=== PATIENT | male | born 1980 | race Hispanic/Latino ===

== ENCOUNTER 2017-12-26 21:29 | Inpatient (IN) | payer BC ==
[2017-12-26 22:06] LABS: Bilirubin Negative (Negative); Blood, Urine Negative (Negative); Clarity CLEAR (Clear); Glucose, Urine (Dipstick) Negative (Negative); Leukocyte Negative (Negative); Nitrite Negative (Negative); Protein, Urine (Dipstick) Negative (Neg-Trace); Specific Gravity, Urine 1.025 (1.002-1.036); Urobilinogen 0.2 mg/dL (0.2-1.0)
[2017-12-26 23:35] LABS: #Eosinphils 0.1 thou/uL (0.0-0.7); #Lymphocytes 1.4 thou/uL (1.20-3.40); #Monocytes 1.2 thou/uL (0.11-0.59); #Neutrophils 12.4 thou/uL (1.40-6.50); %Basophils 0.2 % (0.0-1.0); %Eosinophils 0.7 % (0.0-10.0); %Lymphocytes 9.3 % (21.0-51.0); %Neutrophils 81.8 % (42.0-75.0); Hemoglobin 15.9 g/dL (14.0-18.0); Mean Corpuscular HGB CONC 34.9 g/dL (32.0-36.0); Mean Corpuscular Hemoglobin 31.1 pg (27.0-31.0); Mean Corpuscular Volume 89.3 fl (80.0-94.0); Mean Platelet Volume 7.7 fL (7.4-10.4); Platelet Count 199 thou/uL (130-400); RBC Distribution Width 11.9 % (11.5-14.5); Red Blood Cell (RBC) Count 5.12 mill/uL (4.70-6.10); White Blood Cell (WBC) Count 15.1 thou/uL (4.8-10.8)
[2017-12-26 23:59] LABS: ALT (SGPT) 40 U/L (8-55); AST (SGOT) 31 U/L (5-34); Albumin 4.8 g/dL (3.5-5.0); Alkaline Phosphatase 107 U/L (40-150); Anion Gap 15 mmol/L (10-20); BUN (Urea Nitrogen) 15 mg/dL (8.9-20.6); Bilirubin, Total 0.7 mg/dL (0.2-1.2); Calc. Creatinine Clearance 0 mL/min (70-130); Calcium 10.1 mg/dL (7.8-10.44); Carbon Dioxide 26 mmol/L (22-29); Chloride 101 mmol/L (98-107); Estimated GFR-MDRD 69; Globulin 2.9 g/dL (2.4-3.5); Glucose 112 mg/dL (70-105); Protein, Total 7.7 g/dL (6.0-8.3); Sodium 138 mmol/L (136-145)
[2017-12-27] MEDS ORDERED: Ondansetron ODT 8 MG TAB ONE (01:45)
[2017-12-27] MEDS ORDERED: Ondansetron ODT 4 MG TAB ONE (03:46)
[2017-12-27] MEDS ORDERED: Acetaminophen 500 MG TAB ONE (06:05)
[2017-12-27] MEDS ORDERED: Acetaminophen 325 MG TAB PO PRN (06:57)
[2017-12-27] MEDS ORDERED: Ondansetron HCl/PF 4 MG/2 ML Vial IVP PRN (06:57)
[2017-12-27] MEDS ORDERED: Ondansetron ODT 4 MG TAB PO PRN (06:57)
[2017-12-27] MEDS ORDERED: Sodium Chloride 0.9% 1,000 ML IV SCH (07:00)
[2017-12-27] MEDS ORDERED: metroNIDAZOLE 500 MG in Premix Bag 1 BAG IVPB SCH (07:00)
[2017-12-27] MEDS ORDERED: Morphine 4 MG/ML VIAL SLOW IVP PRN (07:45)
[2017-12-27 10:40] VITALS: BMI 31.9
--- NOTE | 2017-12-27 11:11 | CT ---
PRELIMINARY REPORT/[facility]/EMERGENTY AFTER-HOURS PROCEDURE CT Abdomen and Pelvis With Intravenous Contrast CLINICAL HISTORY: 37 years old, male; Abdominal pain: R/O appy TECHNIQUE: Axial computed tomography images of the abdomen and pelvis with intravenous contrast. All CT scans at this facility use one or more dose reduction techniques, viz.: automated exposure control; ma/kV adj ustment per patient size (including targeted exams where dose is matched to indication; i.e. head); or iterative reconstruction technique. Coronal reformatted images were created and reviewed. COMPARISON: No relevant prior studies available. FINDINGS: Lung bases: Unremarkable. No mass. No consolidation. ABDOMEN: Liver: Unremarkable. No mass. Gallbladder and bile ducts: Unremarkable. No calcified stones. No ductal dilation. Pancreas: Unremarkable. No mass. No ductal dilation. Spleen: Unremarkable. No splenomegaly. Adrenals: Unremarkable. No mass. Kidneys and ureters: Unremarkable. No solid mass. No hydronephrosis. Stomach and bowel: Mural thickening of the mid sigmoid colon with associated scattered diverticula an d infiltration / stranding of the pericolonic fat consistent with acute diverticulitis. No mile absc ess or perforation. No obstruction. PELVIS: Appendix: Normal appendix. Bladder: Unremarkable. No mass. Reproductive: Unremarkable as visualized. ABDOMEN and PELVIS: Intraperitoneal space: Unremarkable. No free air. No significant fluid collection. Bones/joints: No acute fracture. No dislocation. Soft tissues: Tiny fat-containing umbilical hernia. Vasculature: Unremarkable. No abdominal aortic aneurysm. Lymph nodes: Unremarkable. No enlarged lymph nodes. IMPRESSION: 1. Normal appendix. 2. Acute diverticulitis of the midsigmoid colon. No associated abscess or perforation. Thank you for allowing us to participate in the care of your patient. Dictated and Authenticated by: Papito Pegn MD 12/27/2017 5:04 AM Central Time ([place] & [place]) FINAL REPORT EMERGENT AFTER HOURS STUDY CT ABDOMEN WITH CONTRAST CT PELVIS WITH CONTRAST: DATE: 12/27/17. TIME: 4:00 a.m. HISTORY: A 37-year-old male with lower abdominal pain. Rule out appendicitis. TECHNIQUE: IV injection of iodinated contrast media: Isovue. Oral contrast media: administered. FINDINGS: At midline in the pelvis, there is a segment of sigmoid colon where there is mural thickening, and mo derately severe surrounding fat stranding representing edema, with a minimal amount of adjacent free fluid, representing acute diverticulitis. There is at least 1 punctate focus and possibly 2, of appa rently extraluminal gas, consistent with contained microperforation. This is a minor disagreement wi th the preliminary report by [facility]. Otherwise, there is no major disagreement. There are multiple d iverticula throughout the sigmoid colon and descending colon. The appendix, abdominal aorta, bilateral kidneys, adrenals, pancreas, liver, and spleen are normal. No small bowel dilation. Decompressed urinary bladder. IMPRESSION: 1. Moderately severe acute sigmoid diverticulitis, including contained microperforation. 2. No abscess. 3. Normal appendix. TOM Aguilar POS: WILLIAN
--- NOTE | 2017-12-27 12:53 | HP ---
DATE OF ADMISSION: 12/27/2017 ADMITTING PHYSICIAN: Dr. Sea Sosa. HISTORY OF PRESENT ILLNESS: The patient is a 37-year-old male who presented to the emergenc y room complaining of left lower quadrant pain, discomfort, and noted a significant pain ongoing, fee ling of fullness, bloated, some nausea, but no vomiting with perhaps having fever, started symptoms a pproximately 12-14 hours prior to admission. He was seen and evaluated in the emergency room. A CT scan was performed, which did reveal acute diverticulitis without apparent evidence of perforation. He has had no prior history of colon surgery, does have a history of undescended testicle surgery. H e has not noted any fever at this time. He does note he has had some difficulty having bowel movemen ts, once again he noticed some localized bloating, generalized malaise for approximately 24 hours. Otherwise, no other medical complaints are noted. ALLERGIES: He has no known allergies. CURRENT MEDICATIONS: None. PAST SURGICAL HISTORY: Significant for undescended testicular torsion surgery, otherwise surgical hi story is negative. PAST MEDICAL HISTORY: Otherwise negative. FAMILY HISTORY: Negative for atherosclerotic coronary artery disease, renal disease, diabetes. SOCIAL AND PERSONAL HISTORY: The patient is employed. He does drink socially. He does not smoke. REVIEW OF SYSTEMS: Positive for recent occipital neuralgia treated with prednisone. PHYSICAL EXAMINATION: VITAL SIGNS: Temperature is 102.4, pulse 112, respirations 22, O2 sats 94, blood pressure 105/68. GENERAL: He is alert and active, does not appear in any distress, appears to be resting comfortably in bed. HEENT: Normocephalic, atraumatic. Sclerae and conjunctivae are clear. NECK: Supple, full range of motion. No masses, no bruits auscultated. Thyroid is midline without t hyromegaly or thyroid masses. LUNGS: Clear. HEART: Reveals tachycardia without murmur, gallops or rubs. ABDOMEN: Reveals some abdominal tenderness to the left lower quadrant. There is no evidence of rebo und or guarding. There are slight bowel sounds present and active. There is tenderness to the left lower quadrant noted. EXTREMITIES: No clubbing, edema or cyanosis. LABORATORY DATA AND IMAGING: White blood count is 15.1, hemoglobin 15.9, hematocrit 45.7. Sodium 13 8, potassium 4.0, chloride 101, CO2 26, BUN 15, creatinine 1.20. CT scan of the abdomen and pelvis d oes reveal acute diverticulitis changes with normal appendix. No abscess or perforation could be dylon reciated. IMPRESSION: Acute diverticulitis. PLAN: The patient has been admitted. He has been started on IV Cipro as well as IV metronidazole. This will be continued. We will give him some pain relief with morphine sulfate. We will consult [facility] for further treatment recommendations.
[2017-12-27] MEDS ORDERED: ISOVUE-370 76%-LOCM 1 ML ONE (13:20)
[2017-12-27] MEDS ORDERED: Iopamidol 370 76% 50 ML VIAL FS ONE (13:20)
[2017-12-27] MEDS ORDERED: Acetaminophen 650 MG in Premix Bag 1 BAG IVPB PRN (13:48)
[2017-12-27] MEDS: Sodium Chloride 0.9% 1,000 ML IV SCH ×2 (14:14→20:21)
[2017-12-27] MEDS: metroNIDAZOLE 500 MG in Premix Bag 1 BAG IVPB SCH (15:32)
--- NOTE | 2017-12-27 15:32 | PDOC.GSCN ---
Surgery Consult: HPI - Consult details Date: 12/27/17 Time: 12:39 Reason for consult: abdominal pain (diverticulitis) Requesting physician: Sea Sosa History of present illness: Mr Baeza is a 37 yo male who presented to [facility] ER with a cc of abdominal pain since noon 12/27/2017. Pain was located in the LLQ and gradually worsening despite taking ibuprofen so patient presented to ER where he was evaluated and found to have diverticulitis. Pt was admitted by his PCP and surgery was consulted for further recommendations. Upon our evaluation the patients states at its worst the pain was a 9/10, but has improved to a 4/10 with the administration of pain medications. He has had diarrhea, chillas and a fever since admission associated with some nausea and dry heaving. He denies constipation, melena, unintentional weight loss, although he did have an episode of hematochezia approximately 6 months ago. Surgery Consult: ROS - Review of Systems All systems: 10 systems reviewed and no additional complaints unless stated below. Surgery Consult: PMH Past Medical History: Pt denies any chronic medical illnesses Past Surgical History: Orcheopexy ages 7 and 22 - Past Family History Pertinent family history: Mother- DM, Father- DM, CAD, Paternal grandfather- CAD - Past Social History Smoking Status: Never smoker Alcohol Use: occasional Drug Use History: pt denies any use Living Situation: independent Surgery Consult: Exam - Vital signs Vital signs: Vital Signs - Most Recent Temp Pulse Resp BP Pulse Ox 102.3 F H 113 H 16 104/65 93 L 12/27/17 11:03 12/27/17 11:03 12/27/17 11:03 12/27/17 11:03 12/27/17 11:03 - Physical Exam General: other (Resting in bed, NAD) Eye: normal ocular movement, PERRL Neck: other (supple, trachea midline) Abdomen: soft, tender (generalized, tenderness with some mild rebound) Surgery Consult: Meds - Medications MAR Reviewed: Yes Medications: Current Medications Acetaminophen (Tylenol) 650 mg PO Q4H PRN PRN Reason: Headache/Fever or Pain Stop: 12/27/17 17:00 Sodium Chloride (Normal Saline 0.9%) 1,000 mls @ 135 mls/hr IV .Q7H25M [facility] Stop: 12/27/17 17:00 Last Admin: 12/27/17 07:59 Dose: 1,000 mls Metronidazole 500 mg/ Device 100 mls @ 100 mls/hr IVPB Q8H [facility] Stop: 12/27/17 17:00 Last Admin: 12/27/17 08:00 Dose: 100 mls Ciprofloxacin/Dextrose 400 mg/ (Device) 200 mls @ 200 mls/hr IVPB Q12HR [facility] Stop: 12/27/17 17:00 Last Admin: 12/27/17 08:03 Dose: 200 mls Morphine Sulfate (Morphine) 2 mg SLOW IVP Q2H PRN PRN Reason: moderate to severe pain Ondansetron HCl (Zofran) 4 mg IVP Q6H PRN PRN Reason: Nausea/Vomiting Stop: 12/27/17 17:00 Ondansetron HCl (Zofran Odt) 4 mg PO Q6H PRN PRN Reason: Nausea/Vomiting Stop: 12/27/17 17:00 Sodium Chloride (Flush - Normal Saline) 10 ml IVF Q12HR [facility] Last Admin: 12/27/17 09:10 Dose: Not Given Sodium Chloride (Flush - Normal Saline) 10 ml IVF PRN PRN PRN Reason: Saline Flush - Allergies Allergies/Adverse Reactions: Allergies Allergy/AdvReac Type Severity Reaction Status Date / Time No Known Allergies Allergy Unverified 12/27/17 06:56 Surgery Consult: Results - Labs Result Diagrams: 12/26/17 23:20 12/26/17 23:20 Lab results: Laboratory Results WBC 15.1 thou/uL (4.8-10.8) H 12/26/17 23:20 RBC 5.12 mill/uL (4.70-6.10) 12/26/17 23:20 Hgb 15.9 g/dL (14.0-18.0) 12/26/17 23:20 Hct 45.7 % (42.0-52.0) 12/26/17 23:20 MCV 89.3 fl (80.0-94.0) 12/26/17 23:20 MCH 31.1 pg (27.0-31.0) H 12/26/17 23:20 MCHC 34.9 g/dL (32.0-36.0) 12/26/17 23:20 RDW 11.9 % (11.5-14.5) 12/26/17 23:20 Plt Count 199 thou/uL (130-400) 12/26/17 23:20 MPV 7.7 fL (7.4-10.4) 12/26/17 23:20 Neutrophils % 81.8 % (42.0-75.0) H 12/26/17 23:20 Lymphocytes % 9.3 % (21.0-51.0) L 12/26/17 23:20 Monocytes % 8.0 % (0.0-10.0) 12/26/17 23:20 Eosinophils % 0.7 % (0.0-10.0) 12/26/17 23:20 Basophils % 0.2 % (0.0-1.0) 12/26/17 23:20 Neutrophils # 12.4 thou/uL (1.40-6.50) H 12/26/17 23:20 Lymphocytes # 1.4 thou/uL (1.20-3.40) 12/26/17 23:20 Monocytes # 1.2 thou/uL (0.11-0.59) H 12/26/17 23:20 Eosinophils # 0.1 thou/uL (0.0-0.7) 12/26/17 23:20 Basophils # 0.0 thou/uL (0.0-0.2) 12/26/17 23:20 Sodium 138 mmol/L (136-145) 12/26/17 23:20 Potassium 4.0 mmol/L (3.5-5.1) 12/26/17 23:20 Chloride 101 mmol/L (98-107) 12/26/17 23:20 Carbon Dioxide 26 mmol/L (22-29) 12/26/17 23:20 Anion Gap 15 mmol/L (10-20) 12/26/17 23:20 BUN 15 mg/dL (8.9-20.6) 12/26/17 23:20 Creatinine 1.20 mg/dL (0.6-1.3) 12/26/17 23:20 Estimated GFR (MDRD) 69 12/26/17 23:20 Glucose 112 mg/dL (70-105) H 12/26/17 23:20 Calcium 10.1 mg/dL (7.8-10.44) 12/26/17 23:20 Total Bilirubin 0.7 mg/dL (0.2-1.2) 12/26/17 23:20 AST 31 U/L (5-34) 12/26/17 23:20 ALT 40 U/L (8-55) 12/26/17 23:20 Alkaline Phosphatase 107 U/L (40-150) 12/26/17 23:20 Serum Total Protein 7.7 g/dL (6.0-8.3) 12/26/17 23:20 Albumin 4.8 g/dL (3.5-5.0) 12/26/17 23:20 Globulin 2.9 g/dL (2.4-3.5) 12/26/17 23:20 Albumin/Globulin Ratio 1.7 g/dL (1.2-2.2) 12/26/17 23:20 Urine Color YELLOW (Yellow) 12/26/17 22:01 Urine Clarity CLEAR (Clear) 12/26/17 22:01 Urine pH 6.0 (5.0-9.0) 12/26/17 22:01 Ur Specific [place] 1.025 (1.002-1.036) 12/26/17 22:01 Urine Protein Negative mg/dL (Neg-Trace) 12/26/17 22:01 Urine Glucose (UA) Negative mg/dL (Negative) 12/26/17 22:01 Urine Ketones Negative mg/dL (Negative) 12/26/17 22:01 Urine Blood Negative (Negative) 12/26/17 22:01 Urine Nitrite Negative (Negative) 12/26/17 22:01 Urine Bilirubin Negative (Negative) 12/26/17 22:01 Urine Urobilinogen 0.2 mg/dL (0.2-1.0) 12/26/17 22:01 Ur Leukocyte Esterase Negative (Negative) 12/26/17 22:01 - Radiology Interpretation CT scan - abdomen Status: report reviewed by me (CT scan ab/pelvis reviewed by Dr Gauthier, evidence of thickened sigmoid colon with adjacent fat stranding and punctate area of extraluminal gas- possibly secondary to microperforation) Surgery Consult: A/P - Problem (1) Diverticulitis large intestine Current Visit: Yes Code(s): K57.32 - DVTRCLI OF LG INT W/O PERFORATION OR ABSCESS W/O BLEEDING Status: Acute Qualifiers: Diverticulitis bleeding: without bleeding Diverticulitis complication: with perforation and without abscess Qualified Code(s): K57.20 - Diverticulitis of large intestine with perforation and abscess without bleeding (2) Abdominal pain Current Visit: Yes Code(s): R10.9 - UNSPECIFIED ABDOMINAL PAIN Status: Acute Qualifiers: Abdominal location: left lower quadrant Qualified Code(s): R10.32 - Left lower quadrant pain - Plan Plan: There is no acute surgical indication at this time. Continue IV abx, IV fluid hydration and NPO status. Continue serial abdominal exams. Thank you for the consultation we will continue to follow this patient closely with you. Pt was seen and evaluated with Dr Gauthier, assessment and plan developed concurrently
[2017-12-27] MEDS ORDERED: Clopidogrel Bisulfate 75 MG TAB ONE (16:16)
[2017-12-28] MEDS: metroNIDAZOLE 500 MG in Premix Bag 1 BAG IVPB SCH ×4 (00:45→23:35)
[2017-12-28 04:43] LABS: #Lymphocytes 1.6 thou/uL (1.20-3.40); #Monocytes 1.1 thou/uL (0.11-0.59); #Neutrophils 13.7 thou/uL (1.40-6.50); %Basophils 0.1 % (0.0-1.0); %Eosinophils 0.1 % (0.0-10.0); %Lymphocytes 9.5 % (21.0-51.0); %Monocytes 6.8 % (0.0-10.0); %Neutrophils 83.5 % (42.0-75.0); Hemoglobin 13.6 g/dL (14.0-18.0); Mean Corpuscular HGB CONC 34.3 g/dL (32.0-36.0); Mean Corpuscular Hemoglobin 31.6 pg (27.0-31.0); Mean Corpuscular Volume 92.1 fl (80.0-94.0); Mean Platelet Volume 8.1 fL (7.4-10.4); Platelet Count 152 thou/uL (130-400); Red Blood Cell (RBC) Count 4.31 mill/uL (4.70-6.10); White Blood Cell (WBC) Count 16.4 thou/uL (4.8-10.8)
[2017-12-28] MEDS: Sodium Chloride 0.9% 1,000 ML IV SCH ×4 (04:43→22:57)
[2017-12-28 04:55] LABS: Anion Gap 8 mmol/L (10-20); BUN (Urea Nitrogen) 9 mg/dL (8.9-20.6); Calc. Creatinine Clearance 134 mL/min (70-130); Calcium 8.6 mg/dL (7.8-10.44); Carbon Dioxide 26 mmol/L (22-29); Chloride 106 mmol/L (98-107); Estimated GFR-MDRD 81; Glucose 110 mg/dL (70-105); Potassium 3.4 mmol/L (3.5-5.1); Sodium 137 mmol/L (136-145)
--- NOTE | 2017-12-28 08:46 | PRG ---
DATE OF SERVICE: 12/28/2017 SUBJECTIVE: Mr. Baeza is feeling better. OBJECTIVE: VITAL SIGNS: His T-max is 100.2, blood pressure 111/75. LUNGS: Clear. ABDOMEN: Appears a little bit less tender in the left lower quadrant, but still does have some tende rness, less rigidity is noted. LABORATORY DATA: His white count of 16.4, hemoglobin 13.6, hematocrit 39.7. Chemistry profile is wi thin normal limits. Blood cultures are negative. IMPRESSION: Acute diverticulitis. PLAN: He is improving, we will continue Cipro and Flagyl. I have discussed with him the future nayeli peña recommendations regarding surgery. Hopefully, he will be able to eat today.
[2017-12-28] MEDS ORDERED: traMADol HCl 50 MG TAB PO PRN ×2 (12:41)
[2017-12-28] MEDS ORDERED: Morphine 4 MG/ML VIAL SLOW IVP PRN (12:42)
[2017-12-28] MEDS ORDERED: Acetaminophen 500 MG TAB PO SCH (13:00)
--- NOTE | 2017-12-28 13:21 | PRG ---
DATE OF SERVICE: 12/28/2017 SUBJECTIVE: Mr. Baeza is a 37-year-old man admitted yesterday with acute onset abdominal pa in. Diagnosis of acute sigmoid colon diverticulitis with microperforation was rendered. The patient was placed on broad-spectrum antibiotics. He was placed on bowel rest. Today, he reports no nausea , vomiting. He reports a decrease in abdominal pain. He did have a bowel movement this morning and passes flatus. His urinary output has been adequate. He denies any chills. OBJECTIVE: VITAL SIGNS: Today includes blood pressure 111/75, pulse is 96, respiratory rate is 18, maximum temp erature in the last 24 hours is 102.4 degrees Fahrenheit; however, currently, his temperature is 99.5 degrees Fahrenheit. HEENT: Reveals normocephalic and atraumatic. HEART: Reveals regular rate and rhythm, no murmurs or gallops auscultated. LUNGS: Clear to auscultation bilaterally. Breathing regular and unlabored. ABDOMEN: Soft, nondistended. He has moderate tenderness to palpation, left lower quadrant greater t brady right. He has marked decrease in rebound tenderness in contrast yesterday. NEUROLOGIC: Reveals no focal deficits present. LABORATORY DATA: Today includes a CBC with 16,400 white blood cells, hemoglobin and hematocrit are s table at 13.6 and 39.7 respectively. Platelet count is stable at 152,000. Metabolic profile: Sodiu m 137, potassium 3.4, chloride is 106, bicarbonate is 26, BUN 9, creatinine is 1.04, glucose is 110. IMPRESSION: 1. Acute sigmoid colon diverticulitis with microperforation, stable. 2. Resolving acute febrile illness secondary to #1. 3. Acute hypokalemia. PLAN: 1. Continue with broad spectrum IV antibiotics. 2. Initiate a clear liquid diet as tolerated. There is no acute surgical indication for this patien t at this time. We will reevaluate the patient tomorrow. If tolerated clear liquid diet and remains afebrile, we will consider advancing his diet and convert antibiotic therapy to oral agents. Above findings and plan discussed with the patient who indicates understanding of the information giv en. I have answered his questions.
[2017-12-28] MEDS: Acetaminophen 500 MG TAB PO SCH ×2 (17:20→23:35)
[2017-12-29] MEDS: Sodium Chloride 0.9% 1,000 ML IV SCH ×3 (02:17→22:46)
[2017-12-29] MEDS: Acetaminophen 500 MG TAB PO SCH ×3 (05:19→17:07)
[2017-12-29 06:10] LABS: Eosinophils 1 % (0-10); Hemoglobin 12.4 g/dL (14.0-18.0); Lymphocytes 15 % (21-51); MDiff Complete? YES; Mean Corpuscular HGB CONC 32.9 g/dL (32.0-36.0); Mean Corpuscular Hemoglobin 30.2 pg (27.0-31.0); Mean Corpuscular Volume 91.8 fl (80.0-94.0); Mean Platelet Volume 7.8 fL (7.4-10.4); Monocytes 10 % (0-10); Neutrophil 74 % (42-75); PLT Morphology Comment Appears Adequate; Platelet Count 151 thou/uL (130-400); RBC Distribution Width 11.9 % (11.5-14.5); Red Blood Cell (RBC) Count 4.11 mill/uL (4.70-6.10); White Blood Cell (WBC) Count 12.5 thou/uL (4.8-10.8)
[2017-12-29] MEDS: metroNIDAZOLE 500 MG in Premix Bag 1 BAG IVPB SCH ×2 (08:24→15:45)
--- NOTE | 2017-12-29 11:40 | PRG ---
DATE OF SERVICE: 12/29/2017 ATTENDING PHYSICIAN: Dr. Hari Gauthier. SUBJECTIVE: Mr. Baeza is a 37-year-old male, who was admitted 2 days ago with acute onset of abdomin al pain. Workup identified acute sigmoid colon diverticulitis with microperforation. He was placed on broad spectrum antibiotics and admitted to the floor. He was placed on bowel rest. He has subseq uently had no nausea or vomiting. His abdominal pain has significantly decreased. He was started on clear liquid diet yesterday, which he tolerated well. White blood cell count is trending downward. He is having normal bowel function. OBJECTIVE: VITAL SIGNS: Temperature 98.8, pulse 58, respirations 16, O2 sat 97% on room air, and blood pressure 112/74. CONSTITUTIONAL: Well-developed, well-nourished male lying in bed in no acute distress. HEENT: Atraumatic, normocephalic. CARDIOVASCULAR: Regular rate and rhythm. Heart sounds normal. PULMONARY: Bilateral breath sounds. Clear to auscultation. ABDOMEN: Soft, nondistended, mild tenderness to left lower quadrant, significantly improved since ex am yesterday. NEUROLOGIC: GCS 15. Awake, alert, oriented x3. LABORATORY DATA: Hematology: WBC 12.5 down from 16.4 yesterday, RBC 4.11, hemoglobin 12.4, hematocr it 37.7, and platelets 151. ASSESSMENT: 1. Acute sigmoid colon diverticulitis with microperforation, improving. 2. Improving leukocytosis. 3. Afebrile for past 24 hours. 4. Tolerating clear liquid diet. 5. Improving abdominal pain and abdominal exam. PLAN: 1. Advance diet to low residual. We will request dietary consult for patient teaching. 2. We would transition antibiotics to oral only to prepare for discharge. 3. We will need to remain on low residual diet and have followup with Gastroenterology for colonosco py in approximately 6 weeks. The patient was reviewed with Dr. Gauthier, who agrees with plan.
--- NOTE | 2017-12-29 12:28 | PRG ---
DATE OF SERVICE: 12/29/2017 SUBJECTIVE: The patient continues to improve. He had some abdominal pain last night, but feels bett er. He is tolerating clear liquids and Surgery has advanced his diet for lunch today. Denies fever, denies nausea and vomiting. He is ambulating in the room. OBJECTIVE: VITAL SIGNS: Temperature 98.8, T-max of 99.5, heart rate 61, respirations 16, blood pressure 112/74, pulse ox is 97% on room air. GENERAL: He is awake and alert, in no acute distress. HEENT: Speech is clear. Mucosa is moist. NECK: Supple. HEART: Regular rate and rhythm. LUNGS: Clear. ABDOMEN: With minimal left lower quadrant tenderness. LABORATORY DATA: White blood cell count down to 12,500 from 16,400 yesterday, hemoglobin and hematoc rit are 12.4 and 37.7, platelets of 151. ASSESSMENT AND PLAN: This is a 37-year-old gentleman admitted for acute diverticulitis with microper foration. He continues to improve with broad-spectrum IV antibiotics. No surgical indication at thi s time. Advancing diet per Surgery and possibly switching to oral antibiotics if he tolerates his di et and hopefully home in the next 1-2 days.
[2017-12-30] MEDS: Acetaminophen 500 MG TAB PO SCH ×2 (00:11→05:05)
[2017-12-30] MEDS: metroNIDAZOLE 500 MG in Premix Bag 1 BAG IVPB SCH ×2 (00:11→07:48)
[2017-12-30] MEDS: Sodium Chloride 0.9% 1,000 ML IV SCH ×2 (02:16→06:33)
[2017-12-30 05:12] LABS: #Eosinphils 0.2 thou/uL (0.0-0.7); #Monocytes 0.7 thou/uL (0.11-0.59); #Neutrophils 7.3 thou/uL (1.40-6.50); %Basophils 0.2 % (0.0-1.0); %Eosinophils 1.8 % (0.0-10.0); %Lymphocytes 19.4 % (21.0-51.0); %Monocytes 6.9 % (0.0-10.0); %Neutrophils 71.6 % (42.0-75.0); Hemoglobin 12.9 g/dL (14.0-18.0); Mean Corpuscular HGB CONC 35.2 g/dL (32.0-36.0); Mean Corpuscular Hemoglobin 32.4 pg (27.0-31.0); Mean Corpuscular Volume 92.1 fl (80.0-94.0); Mean Platelet Volume 7.6 fL (7.4-10.4); Platelet Count 189 thou/uL (130-400); RBC Distribution Width 11.6 % (11.5-14.5); Red Blood Cell (RBC) Count 3.99 mill/uL (4.70-6.10); White Blood Cell (WBC) Count 10.1 thou/uL (4.8-10.8)
--- NOTE | 2017-12-30 10:46 | PRG ---
DATE OF SERVICE: 12/30/2017 ATTENDING PHYSICIAN: Dr. Hari Gauthier. SUBJECTIVE: Mr. Baeza is a 37-year-old male who was admitted 3 days ago with acute onset of abdomina l pain. Workup identified acute sigmoid colon diverticulitis with microperforation. He was placed o n broad spectrum antibiotics and admitted to the floor. He was started on bowel rest and subsequentl y had no nausea or vomiting. His abdominal pain improved drastically. He was started on clear liqui d diet which he tolerated well. He was then advanced to a low residual diet with patient instruction by Dietary Services. He is now seen this morning and is virtually pain free. His white blood cell count is 10.1, down from 12.5 yesterday. He has remained afebrile. He is having normal bowel functi on. OBJECTIVE: VITAL SIGNS: Temperature 98.2, pulse 58, respirations 20, O2 saturation 97% room air, and blood pres sure 117/81. CONSTITUTIONAL: Well-nourished, well-developed male sitting on the edge of bed, in no acute distress . HEENT: Atraumatic, normocephalic. CARDIOVASCULAR: Regular rate and rhythm. Heart sounds normal. PULMONARY: Bilateral breath sounds clear to auscultation. ABDOMEN: Soft, nondistended. No generalized tenderness. Very mild tenderness to left lower quadran t with palpation. Tenderness has nearly completely resolved from prior exams. NEUROLOGIC: GCS 15. Awake, alert, oriented x3. LABORATORY DATA: Hematology: WBC 10.1, RBC 3.99, hemoglobin 12.9, hematocrit 36.7, and platelets 11 .6. ASSESSMENT: 1. Acute sigmoid colon diverticulitis with microperforation, improving. 2. Resolved leukocytosis. 3. Afebrile for 48 hours. 4. Tolerating low residual diet. 5. Patient verbalizing understanding of low residual diet after dietary teaching. 6. No further generalized abdominal pain. Only very mild tenderness in the left lower quadrant with palpation. PLAN: 1. The patient has no indication for surgical intervention urgently at this . 2. Transition antibiotics to oral for discharge per primary service. 3. Remain on low residual diet and have followup with Gastroenterology for a colonoscopy in approxim ately 6 weeks. 4. Trauma services to sign off. Please call with any questions. Patient was reviewed with Dr. Shashank enamorado who agrees with the plan.
[2017-12-30 11:54] VITALS: BP 119/82; TEMP 98.4
[2017-12-30] MEDS ORDERED: metroNIDAZOLE 500 MG TAB PO SCH (15:00)
--- NOTE | 2017-12-30 17:15 | DIS ---
DATE OF ADMISSION: 12/27/2017 DATE OF DISCHARGE: 12/30/2017 PRIMARY CARE PHYSICIAN: Dr. Sea Sosa ADMISSION DIAGNOSIS: Acute diverticulitis. DISCHARGE DIAGNOSIS: Acute diverticulitis, improved. CONSULTATIONS: None. PROCEDURE: CT abdomen. CONSULTATIONS: General Surgery, Dr. Gauthier. HOSPITAL COURSE: This is a 37-year-old gentleman with no prior medical history who presented to the emergency department with left lower quadrant abdominal pain which had been worsening as well as deve loped a fever. In the emergency department, CT revealed acute diverticulitis with evidence of microp erforation. He was admitted and started on broad spectrum antibiotics including IV Cipro and metroni dazole. Dr. Gauthier for General Surgery saw the patient in evaluation, did not think he was a surgical candidate, but recommended n.p.o. status, IV antibiotics, and IV fluid rehydration. The patient kamran erated this well. He had rapid improvement of his symptoms in 1-2 days. His diet was advanced and h e was tolerating a p.o. diet, ambulating in the gibbs. No further fever and only requiring Tylenol fo r pain. He was switched to oral antibiotics and continued to do well and was stable for discharge on the day of discharge. DISCHARGE PHYSICAL EXAMINATION: VITAL SIGNS: Temperature 98.2, T-max of 98.4, pulse of 58, respirations 20, blood pressure 117/81, p ulse ox is 97% on room air. GENERAL: He is awake and alert, in no acute distress. Speech is clear. HEENT: Mucosa is moist. NECK: Supple. HEART: Regular rate and rhythm. LUNGS: Clear. ABDOMEN: With positive bowel sounds in all four quadrants, soft, minimal tenderness in the left lowe r quadrant, but no rebound, no guarding. No peritoneal signs. DISCHARGE LABORATORY DATA: White blood cell count was down to 10.1 thousand, hemoglobin and hematocr it 12.9 and 36.7, platelets of 189. Electrolytes were normal. Urinalysis was normal. DISCHARGE MEDICATIONS: Include Levaquin 500 mg daily for 7 more days, metronidazole 500 mg t.i.d. fo r 7 more days, Tylenol p.r.n., and tramadol p.r.n. FOLLOWUP INSTRUCTIONS: Patient to follow up with Dr. Sosa in 1 week with Gastroenterology in 6 week s for a colonoscopy, instructed to limit strenuous activity due to quinolone treatment.
== END 2017-12-30 12:13 | disposition home or self-care (01) | DRG 392 ==
LOC: ERS 21:29 → T4-B 12-27 05:44
PROVIDERS: ADMIT Family Medicine; ATTEND Family Medicine
DX: K57.20 Diverticulitis of large intestine with perforation and abscess without bleeding (principal); E87.6 Hypokalemia
CPT/HCPCS: 36415; 74177; 80048; 80053; 81003; 85007; 85025; 85027; 87040; 96360; A4216; J0131; J0744; Q0162

== ENCOUNTER 2019-12-25 09:16 | Inpatient (IN) | payer BC ==
[2019-12-25] MEDS ORDERED: Piperacillin/Tazobactam 3.375 GM VIAL ONE (09:41)
[2019-12-25] MEDS ORDERED: Iopamidol-370 76% 500 ML 1 ML ONE (09:43)
[2019-12-25] MEDS ORDERED: Iopamidol 370 76% 50 ML VIAL FS ONE (09:43)
[2019-12-25 10:03] LABS: #Basophils 0.1 thou/uL (0.0-0.2); #Lymphocytes 1.8 thou/uL (1.20-3.40); #Monocytes 1.1 thou/uL (0.11-0.59); #Neutrophils 16.9 thou/uL (1.40-6.50); %Basophils 0.4 % (0.0-1.0); %Eosinophils 0.2 % (0.0-10.0); %Lymphocytes 8.9 % (21.0-51.0); %Monocytes 5.5 % (0.0-10.0); %Neutrophils 85.1 % (42.0-75.0); Hemoglobin 16.2 g/dL (14.0-18.0); Mean Corpuscular HGB CONC 33.1 g/dL (32.0-36.0); Mean Corpuscular Hemoglobin 30.1 pg (27.0-31.0); Mean Corpuscular Volume 90.9 fL (78.0-98.0); Mean Platelet Volume 8.1 fL (7.4-10.4); Platelet Count 207 thou/uL (130-400); White Blood Cell (WBC) Count 19.9 thou/uL (4.8-10.8)
[2019-12-25 10:25] LABS: ALT (SGPT) 37 U/L (8-55); AST (SGOT) 16 U/L (5-34); Albumin 4.6 g/dL (3.5-5.0); Alkaline Phosphatase 92 U/L (40-110); Anion Gap 16 mmol/L (10-20); BUN (Urea Nitrogen) 12 mg/dL (8.9-20.6); Bilirubin, Total 2.5 mg/dL (0.2-1.2); Calc. Creatinine Clearance 0 mL/min (70-130); Carbon Dioxide 22 mmol/L (22-29); Chloride 100 mmol/L (98-107); Estimated GFR-MDRD 58; Globulin 3.3 g/dL (2.4-3.5); Glucose 146 mg/dL (70-105); Lipase 12 U/L (8-78); Potassium 3.3 mmol/L (3.5-5.1); Protein, Total 7.9 g/dL (6.0-8.3); Sodium 135 mmol/L (136-145)
[2019-12-25] MEDS ORDERED: Ketorolac Tromethamine 30 MG/ML VIAL ONE (10:31)
[2019-12-25 12:01] LABS: Bacteria/HPF None Seen HPF (None Seen); Bilirubin Negative (Negative); Blood, Urine Negative (Negative); Clarity Clear (Clear); Glucose, Urine (Dipstick) Normal (Negative); Leukocyte Negative Leu/uL (Negative); Nitrite Negative (Negative); Protein, Urine (Dipstick) 50 mg/dL (Neg-Trace); RBC/HPF 0-3 HPF (0-3); Squamous Epithelial None Seen HPF (0-3); Urobilinogen Normal mg/dL (Less than 2)
[2019-12-25 12:54] LABS: Lactic Acid 1.3 mmol/L (0.5-2.2)
--- NOTE | 2019-12-25 13:12 | CT ---
CT ABDOMEN WITH CONTRAST CT PELVIS WITH CONTRAST: DATE: 12/25/2019 HISTORY: 39-year-old male with left lower quadrant abdominal pain Dr. Barbour discussed the findings by telephone with Dr. Thomas of the ER at 1:06 PM 12/25/2019 COMPARISON: 12/27/2017 TECHNIQUE: IV injection of iodinated contrast media: administered. Oral contrast media:Administered FINDINGS: New finding of pneumoperitoneum: Small to moderate volume of intraperitoneal free air in the ventral upper portion of peritoneal cavity. Numerous tiny foci of free intraperitoneal air scattered in other areas of the peritoneal cavity. There is recurrent diverticulitis of the sigmoid colon, with mural thickening and surrounding fat str anding that represents edema, as well as tiny and small foci of extraluminal free air adjacent to the sigmoid colon. At the left pelvic inlet, there is an approximately 4 x 2 x 5.5 cm paracolic abscess abutting the lat eral aspect of the junction between the descending and sigmoid colon, with air-fluid level. Normal appendix, urinary bladder, abdominal aorta, kidneys, adrenals, pancreas, liver, and spleen. IMPRESSION: Acute sigmoid colonic diverticulitis complicated by perforation (pneumoperitoneum) and paracolic absc ess.
[2019-12-25] MEDS ORDERED: Morphine 4 MG/ML VIAL SLOW IVP PRN (13:52)
[2019-12-25] MEDS ORDERED: hydrALAZINE 20 MG/ML VIAL SLOW IVP PRN (13:52)
[2019-12-25] MEDS ORDERED: Ondansetron PF 4 MG/2 ML Vial IVP PRN (13:52)
--- NOTE | 2019-12-25 14:28 | HP ---
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 The patient was hospitalized in 2018, treated in this hospital, this facility with intravenous antibiotics and bowel rest, successfully resolving nonsurgical treatment of diverticulitis. He has since been seen over [facility] last year for colonoscopy, revealing changes of diverticuli. He is followed by Dr. Sea Sosa. He states he has had several episodes of pain. He has altered his diet to liquids, and after a few days, it improves and resolves. He was treated on one occasion with oral antibiotics by Dr. Sea Sosa, resolving this. On this occasion, he presented a few days ago, Dr. Sosa called in Levaquin and Flagyl. The patient's pain became exquisitely worse. He presented to the emergency room today, and CAT scan reveals a scant amount of pneumoperitoneum and an abscess and left pericolic gutter, 4 cm x 2 x 5.5 cm. Has a small air-fluid level. I have talked to Dr. Zia Barbour, he states that they could aspirate it, he is not sure that he could get a catheter in it, that is so small. The patient is feeling somewhat better now. Pain is mainly localized to the left lower quadrant. He has been hemodynamically stable. ALLERGIES: NONE. TOBACCO: None. ALCOHOL: Socially. MEDICATIONS: None routinely except for Levaquin and Flagyl started by Dr. Sosa 2 to 3 days ago. PAST SURGICAL HISTORY: Orchiopexy. PAST MEDICAL HISTORY: Diverticulitis, colonoscopy last year, [facility], noting diverticuli. No other abnormalities noted. REVIEW OF SYSTEMS: Ten-point noncontributory. SOCIAL HISTORY: The patient is single. He lives alone. PHYSICAL EXAMINATION: VITAL SIGNS: Blood pressure 140/70, respiratory rate 18, and heart rate 70. HEAD, EARS, EYES, NOSE, AND THROAT: Unremarkable. LUNGS: Clear to auscultation. CARDIAC: Regular rate and rhythm without murmur or gallop. ABDOMEN: Tenderness with guarding in his left lower quadrant. Left upper quadrant, right upper quadrant, right lower quadrant reveal that it is soft. Bowel sounds are present. There are no peritoneal signs in these other quadrants. EXTREMITIES: No ankle edema. LABORATORY DATA: Sodium 135, potassium 3.3. Lactic acid 2.1. Bilirubin 2.5. Sodium 135. White count 19, hemoglobin 16. ASSESSMENT AND PLAN: Diverticulitis with abscess and a small amount of pneumoperitoneum. However, he is hemodynamically stable and not very tender. We would recommend intravenous antibiotics. We will reassess him clinically to see how he is doing. May request a CT-guided drainage, although with the size of his abscess cavity, this could be aspirated and a drain may not be able to be placed. WE would see how he does clinically over the next 24 to 48 hours. He may need a drain placed next week if the abscess enlarges. A repeat CAT scan in this hospitalization is likely prior to discharge. I have talked to the patient extensively about the treatment of diverticulitis. He states he has had so many episodes as an outpatient and with the second hospitalization, he is thinking that he wants definitive resection. We have talked about the fact that it would be best to treat him for this acute event and do this electively in the future to hopefully minimize the risk of an ostomy. He agrees. Job ID: [id number]
[2019-12-25 16:24] VITALS: BMI 32.6
[2019-12-25] MEDS: Morphine 2 MG/ML SYRINGE SLOW IVP PRN ×2 (16:24→18:43)
[2019-12-25] MEDS: Acetaminophen 500 MG TAB PO PRN ×2 (16:26→22:32)
[2019-12-25] MEDS: Potassium Chloride 20 MEQ in Lactated Ringer's 1,000 ML IV SCH ×2 (16:45→21:15)
[2019-12-25] MEDS: Piperacillin/Tazobactam 4.5 GM in Sodium Chloride 0.9% 100 ML IVPB SCH ×2 (17:02→23:40)
[2019-12-25] MEDS: Ketorolac Tromethamine 30 MG/ML VIAL IVP SCH ×2 (17:02→23:40)
[2019-12-25] MEDS: Enoxaparin Sodium 40 MG/0.4 ML SYRINGE SC SCH (20:19)
[2019-12-26 05:18] LABS: Band 30 % (5-11); Hemoglobin 14.8 g/dL (14.0-18.0); Lymphocytes 11 % (21-51); MDiff Complete? YES; Mean Corpuscular HGB CONC 31.2 g/dL (32.0-36.0); Mean Corpuscular Hemoglobin 29.1 pg (27.0-31.0); Mean Corpuscular Volume 93.3 fL (78.0-98.0); Mean Platelet Volume 8.1 fL (7.4-10.4); Monocytes 4 % (0-10); Neutrophil 55 % (42-75); Platelet Count 190 thou/uL (130-400); Platelet Morphology Comment Appears Adequate; Red Blood Cell (RBC) Count 5.08 mill/uL (4.70-6.10); White Blood Cell (WBC) Count 9.7 thou/uL (4.8-10.8)
[2019-12-26 05:20] LABS: ALT (SGPT) 25 U/L (8-55); AST (SGOT) 13 U/L (5-34); Alkaline Phosphatase 77 U/L (40-110); Anion Gap 16 mmol/L (10-20); BUN (Urea Nitrogen) 11 mg/dL (8.9-20.6); Calc. Creatinine Clearance 120 mL/min (70-130); Calcium 9.4 mg/dL (7.8-10.44); Carbon Dioxide 20 mmol/L (22-29); Chloride 105 mmol/L (98-107); Estimated GFR-MDRD 71; Globulin 2.9 g/dL (2.4-3.5); Glucose 127 mg/dL (70-105); Potassium 3.7 mmol/L (3.5-5.1); Protein, Total 6.9 g/dL (6.0-8.3); Sodium 137 mmol/L (136-145)
[2019-12-26] MEDS: Ketorolac Tromethamine 30 MG/ML VIAL IVP SCH ×4 (05:55→23:28)
[2019-12-26] MEDS: Piperacillin/Tazobactam 4.5 GM in Sodium Chloride 0.9% 100 ML IVPB SCH ×4 (05:55→23:30)
[2019-12-26] MEDS: Potassium Chloride 20 MEQ in Lactated Ringer's 1,000 ML IV SCH ×3 (05:56→22:30)
[2019-12-26] MEDS: Pantoprazole 40 MG VIAL IVP SCH (08:36)
[2019-12-26] MEDS ORDERED: Fentanyl 100 MCG/2 ML VIAL ONE ×4 (09:46→14:50)
[2019-12-26] MEDS ORDERED: Dexamethasone 4 mg/ml Vial ONE (09:51)
[2019-12-26] MEDS ORDERED: Midazolam HCl 2 mg/2 ml Vial ONE (09:51)
[2019-12-26] MEDS ORDERED: Fentanyl 250 MCG/5 ML VIAL ONE (10:07)
[2019-12-26] MEDS ORDERED: Albumin 5% 500 ML ONE (11:00)
[2019-12-26] MEDS ORDERED: Glycopyrrolate 0.2 MG/ML 5 ML SYRINGE ONE (11:39)
[2019-12-26] MEDS ORDERED: PROPOFOL 200 MG/20 ML VIAL ONE (11:39)
[2019-12-26] MEDS ORDERED: Dexamethasone 20 MG/5 ML VIAL ONE ×2 (11:39→11:42)
[2019-12-26] MEDS ORDERED: Succinylcholine Chloride 20 MG/ML 10 ml SYRINGE FS ONE (11:39)
[2019-12-26] MEDS ORDERED: PHENYLEPHRINE-NS 100 MCG/ML 10 ML SYRINGE ONE (11:39)
[2019-12-26] MEDS ORDERED: Ondansetron PF 4 MG/2 ML Vial ONE (11:39)
[2019-12-26] MEDS ORDERED: Lidocaine 1% PF 5 ML VIAL ONE (11:39)
[2019-12-26] MEDS ORDERED: Rocuronium Bromide 10 MG/ML (10ML VIAL) ONE (11:39)
[2019-12-26] MEDS ORDERED: Piperacillin/Tazobactam 4.5 GM VIAL ONE (11:42)
[2019-12-26] MEDS ORDERED: Bupivacaine HCl 0.5%/Epinephrine 1:200,000/PF 30 ml Vial ONE (11:42)
[2019-12-26] MEDS ORDERED: Morphine Sulfate 2 MG/ML SYRINGE SLOW IVP PRN (13:38)
[2019-12-26] MEDS ORDERED: HYDROmorphone 2 MG/ML VIAL SLOW IVP PRN (13:38)
[2019-12-26] MEDS ORDERED: PACU-Morphine 4MG/ML VIAL SLOW IVP PRN (13:38)
[2019-12-26] MEDS ORDERED: Meperidine HCl/PF 25 MG/ML VIAL SLOW IVP PRN (13:38)
[2019-12-26] MEDS ORDERED: Promethazine HCl 25 MG/ML VIAL IM PRN ×2 (13:38→14:57)
[2019-12-26] MEDS ORDERED: Ketorolac Tromethamine 30 MG/ML VIAL IVP PRN (13:38)
[2019-12-26] MEDS ORDERED: Ondansetron HCl/PF 4 MG/2 ML Vial IVP PRN (13:38)
[2019-12-26] MEDS ORDERED: Promethazine HCl 25 MG/ML VIAL SLOW IVP PRN (13:38)
[2019-12-26] MEDS ORDERED: Lactated Ringer's 1,000 ML IV SCH (14:00)
--- NOTE | 2019-12-26 14:25 | EKG ---
Test Reason : Blood Pressure : / mmHG Vent. Rate : 099 BPM Atrial Rate : 099 BPM P-R Int : 134 ms QRS Dur : 084 ms QT Int : 342 ms P-R-T Axes : 026 024 229 degrees QTc Int : 438 ms Normal sinus rhythm T wave abnormality, consider inferior ischemia T wave abnormality, consider anterolateral ischemia Abnormal ECG Confirmed by NARAYAN TOPETE DO ([id number]), editor city DONNA RATLIFF ([id number]) on 12/26/2019 2:25:25 PM Referred By: Confirmed By:NARAYAN TOPETE DO
[2019-12-26] MEDS ORDERED: Ondansetron PF 4 MG/2 ML Vial IVP PRN (14:57)
[2019-12-26] MEDS ORDERED: Zolpidem Tartrate 5 MG TAB PO PRN (14:57)
[2019-12-26] MEDS ORDERED: Naloxone HCl 0.4 mg/ml Vial IV PRN (14:57)
[2019-12-26] MEDS ORDERED: diphenhydrAMINE 25 MG CAP PO PRN (14:57)
[2019-12-26] MEDS ORDERED: diphenhydrAMINE 50 MG/ML VIAL IVP PRN (14:57)
[2019-12-26] MEDS ORDERED: diphenhydrAMINE 50 MG/ML VIAL IM PRN (14:57)
[2019-12-26] MEDS ORDERED: fentaNYL Citrate/PF 2,000 MCG in Sodium Chloride 0.9% 60 ML IV PRN (14:57)
[2019-12-26] MEDS ORDERED: Communication Order-Pharmacy FS PRN (15:00)
--- NOTE | 2019-12-26 15:52 | PRG ---
DATE OF SERVICE: 12/26/2019 TIME OF EVALUATION: 0830. SUBJECTIVE: Mr. Baeza evaluated at 0830 this morning. The patient was admitted for diverticulitis and his pain and tenderness was more localized to the left lower quadrant. His white count was 19,000. By this morning, his white count is 9000, but he has a left shift of 30% bands. The patient had a fever last night to 102 degrees. He was tachycardic to 140, although, he was last morning at 101. The patient states his pain is increased involving right lower quadrant, right upper quadrant, left upper quadrant. It is more severe than yesterday. OBJECTIVE: GENERAL: He is pale looking and ill-looking. LUNGS: Clear to auscultation. CARDIAC: Sinus tachycardia. ABDOMEN: Diffusely tender with peritoneal signs. EXTREMITIES: Unremarkable. ASSESSMENT: Sepsis, peritonitis, perforated diverticulitis. PLAN: We would recommend laparotomy, colon resection, Kayla's procedure. The patient understands the risks and benefits, consents. We will plan general anesthesia and pain pump. The patient understands risks and benefits, understands. Colostomy can be reversed in the months to come. He is agreeable and we proceed. Job ID: [id number]
--- NOTE | 2019-12-26 18:57 | OP ---
DATE OF PROCEDURE: 12/26/2019 PREOPERATIVE DIAGNOSES: Perforated diverticulitis, sigmoid peritonitis, and sepsis. POSTOPERATIVE DIAGNOSES: Perforated diverticulitis, sigmoid peritonitis, and sepsis. PROCEDURES PERFORMED: Laparotomy; abdominal washout; sigmoid colon resection; left colon and splenic flexure mobilization; Kayla's procedure, end-sigmoid colostomy, temporary; Seprafilm application; and resection of redundant fatty omentum. ANESTHESIA: General anesthesia. ESTIMATED BLOOD LOSS: 200 mL. BLOOD TRANSFUSION: None. DESCRIPTION OF PROCEDURE: Patient was taken to the operating room, where under general anesthesia, abdomen was clipped of hair, prepared with ChloraPrep and draped in routine fashion. A midline incision was made and during the procedure had to be extended cephalad for splenic flexure mobilization. On entering the abdominal cavity, there was purulent material that was evacuated. Small bowel was not dilated. Omentum was very redundant and fatty. Inflammatory infectious adhesions taken down from the pelvis with blunt dissection reflecting the omentum cephalad. Redundant omentum divided with LigaSure and excised. Left colon mobilized. Blunt dissection. Left colon mobilized with cautery and blunt dissection using the LigaSure. The left ureter kept free of harm. Transverse colon free from the omentum with the cautery towards the splenic flexure, mobilized the splenic flexure, mobilizing the left colon, splenic flexure, off Gerota's fascia. Once this was mobilized adequately, the colon dissected free down to the pelvis and above the rectosigmoid. The distal sigmoid dissected free. Mesentery divided with a LigaSure to allow identification of the circumferential distal sigmoid colon which was divided in the disease-free area with a Contour stapler. Mesentery serially divided between LigaSure and clamps with 2-0 silk ties up to the MONO which was divided between clamps, ligating with 2-0 silk ties, keeping the left ureter free of harm. Dissection was carried out more cephalad towards the ligament of Treitz, mobilized in the left colon for adequate reach for a safe colostomy and anticipating future of colostomy takedown. Once this was mobilized, there was one seromuscular tear of the left colon, closed with interrupted Lembert suture of 3-0 silk and fatty tissue patch applied over with 3-0 silk suture. Abdominal cavity irrigated thoroughly with 5 L of saline solution in all quadrants and intraabdominal small bowel loops. Irrigant evacuated. Hemostasis was noted. Sponge and instrument counts were correct. Attention was then turned to formation of the colostomy where circular defect of skin was removed from the left lower quadrant between the umbilicus and the anterior superior iliac spine and a plug of fatty tissue excised from overlying the anterior lateral fascia. A cruciate incision was made in the fascia. Rectus muscle reflected medial and laterally and posterior peritoneum/fascia opened with a cruciate incision, dilated with two fingers and the colon brought out properly oriented through this defect. Abdominal cavity thoroughly irrigating. Instrument and needle counts were correct. Omentum properly placed between the viscera and abdominal wall. Seprafilm placed between the viscera and abdominal wall. Once this was complete, midline fascia closed with continuous suture of #1 PDS. Subcutaneous tissues irrigated, skin approximated in the midline about the umbilicus with dread. Otherwise, left open above and below. Abdominal wound VAC applied. Once this was applied, colostomy maturation undertaken excising the staple line from the end colostomy in the left lower quadrant. Colon was small. There was abundant fatty tissue. Four quadrant Maria Del Carmen sutures of 3-0 Vicryl placed, simple sutures 3-0 Vicryl to complete colostomy maturation and colostomy appliance secured. Patient tolerated the procedure well. Job ID: [id number]
[2019-12-26] MEDS: Enoxaparin Sodium 40 MG/0.4 ML SYRINGE SC SCH (21:26)
[2019-12-27] MEDS: Potassium Chloride 20 MEQ in Lactated Ringer's 1,000 ML IV SCH ×4 (00:25→21:36)
[2019-12-27] MEDS: Ketorolac Tromethamine 30 MG/ML VIAL IVP SCH ×4 (05:41→23:16)
[2019-12-27] MEDS: Piperacillin/Tazobactam 4.5 GM in Sodium Chloride 0.9% 100 ML IVPB SCH ×4 (05:42→23:16)
[2019-12-27 05:43] LABS: ALT (SGPT) 27 U/L (8-55); AST (SGOT) 30 U/L (5-34); Albumin 3.5 g/dL (3.5-5.0); Alkaline Phosphatase 51 U/L (40-110); Anion Gap 13 mmol/L (10-20); BUN (Urea Nitrogen) 15 mg/dL (8.9-20.6); Bilirubin, Total 1.2 mg/dL (0.2-1.2); Calc. Creatinine Clearance 129 mL/min (70-130); Calcium 8.9 mg/dL (7.8-10.44); Carbon Dioxide 24 mmol/L (22-29); Chloride 105 mmol/L (98-107); Estimated GFR-MDRD 77; Globulin 2.7 g/dL (2.4-3.5); Glucose 127 mg/dL (70-105); Protein, Total 6.2 g/dL (6.0-8.3); Sodium 138 mmol/L (136-145)
[2019-12-27 05:48] LABS: Band 21 % (5-11); Hemoglobin 11.1 g/dL (14.0-18.0); Hypochromia SLIGHT = 6-15 cells (100X) (0-5/hpf); Lymphocytes 8 % (21-51); MDiff Complete? YES; Mean Corpuscular HGB CONC 33.3 g/dL (32.0-36.0); Mean Corpuscular Hemoglobin 31.3 pg (27.0-31.0); Mean Corpuscular Volume 93.9 fL (78.0-98.0); Mean Platelet Volume 8.3 fL (7.4-10.4); Metamyelocyte 4 % (0-0); Monocytes 7 % (0-10); Neutrophil 60 % (42-75); Platelet Count 173 thou/uL (130-400); Platelet Morphology Comment Appears Adequate; RBC Distribution Width 11.8 % (11.5-14.5); Red Blood Cell (RBC) Count 3.56 mill/uL (4.70-6.10); White Blood Cell (WBC) Count 11.4 thou/uL (4.8-10.8)
[2019-12-27] MEDS: Pantoprazole 40 MG VIAL IVP SCH (08:18)
--- NOTE | 2019-12-27 17:21 | PRG ---
DATE OF SERVICE: 12/27/2019 SUBJECTIVE: Kiran Baeza is doing well, one day postop laparotomy, splenic flexure mobilization, left colon mobilization, colostomy. The patient feels much better. He is appreciative for the care. His pain has markedly improved. His abdomen pain is well controlled. OBJECTIVE: VITAL SIGNS: 98.2, 100 heart rate, 16 respiratory rate, 121/81. Wade catheter removed and he is voiding. LUNGS: Clear to auscultation. CARDIAC: Regular rate and rhythm. No murmur or gallop. ABDOMEN: Soft. Wound VAC in place. Minimal bowel sounds, colostomy healthy. LABORATORY DATA: White count 11, hemoglobin 11. Basic metabolic profile unremarkable. ASSESSMENT AND PLAN: The patient is doing well. We will initiate clear liquids. I have asked him to go slow. Continue IV fluids for now. Wound Care to teach colostomy care. Outpatient wound VAC arrangements to be made. Job ID: [id number]
[2019-12-27] MEDS: Enoxaparin Sodium 40 MG/0.4 ML SYRINGE SC SCH (20:24)
[2019-12-27] MEDS ORDERED: Loratadine 10 MG TAB PO SCH (22:15)
[2019-12-27] MEDS ORDERED: Oxymetazoline HCl 0.05% (30 ML BOT) NS PRN (22:15)
[2019-12-28] MEDS: Potassium Chloride 20 MEQ in Lactated Ringer's 1,000 ML IV SCH ×2 (05:32→17:11)
[2019-12-28] MEDS: Ketorolac Tromethamine 30 MG/ML VIAL IVP SCH ×4 (05:33→23:43)
[2019-12-28] MEDS: Piperacillin/Tazobactam 4.5 GM in Sodium Chloride 0.9% 100 ML IVPB SCH ×4 (05:33→23:42)
[2019-12-28] MEDS: Pantoprazole 40 MG VIAL IVP SCH (09:16)
[2019-12-28] MEDS: Loratadine 10 MG TAB PO SCH (09:16)
[2019-12-28] MEDS ORDERED: HYDROcodone/Acetaminophen 10/325 mg Tablet PO PRN ×2 (09:31)
[2019-12-28] MEDS ORDERED: traMADol HCl 50 MG TAB PO PRN ×2 (11:13)
[2019-12-28] MEDS ORDERED: Ketorolac Tromethamine 30 MG/ML VIAL IVP SCH (12:00)
--- NOTE | 2019-12-28 12:23 | PRG ---
DATE OF SERVICE: 12/28/2019 SUBJECTIVE: Kiran Baeza is a followup. He is 2 days postoperative sigmoid resection and colostomy. He feels much better. He is walking. He is tolerating liquids well. OBJECTIVE: VITAL SIGNS: Temperature 98.1 degrees, heart rate 84, blood pressure 123/80. LUNGS: Clear to auscultation. CARDIAC: Regular rate and rhythm without murmur or gallop. ABDOMEN: Soft. Bowel sounds present. Some stool in his colostomy bag. No flatus. EXTREMITIES: Unremarkable. LABORATORY DATA: None today. The patient is tolerating liquids without nausea, vomiting, or distention. ASSESSMENT AND PLAN: Perforated diverticulitis with peritonitis, status post laparotomy, Kayla's procedure, colectomy, colostomy. Continue clear liquids today, full liquids tomorrow as wound VAC to be changed tomorrow and I would like to view the wound. We will ask Wound Care to call me to view the wound. Arrange outpatient wound VAC care. Teach the patient colostomy care. Anticipate discharge in the next 2 to 3 days. Continue intravenous antibiotics. Job ID: [id number]
--- NOTE | 2019-12-28 21:25 | ULT ---
EXAM: Bilateral lower extremity venous Doppler US HISTORY: bilateral lower extremity edema and pain FINDINGS: Grayscale, color-flow, Doppler evaluation, spectral analysis of the bilateral lower extremities venou s structures is performed with 2-D imaging. The bilateral common femoral, superficial femoral, popliteal, posterior tibial, proximal greater saphenous and profunda femoral veins are imaged. There is normal luminal compressibility, flow, and augmentation in the visualized deep venous structu res of the bilateral lower extremities. IMPRESSION: No evidence of a deep vein thrombosis in either lower extremity.
[2019-12-28] MEDS: Enoxaparin Sodium 40 MG/0.4 ML SYRINGE SC SCH (21:40)
[2019-12-29] MEDS: Piperacillin/Tazobactam 4.5 GM in Sodium Chloride 0.9% 100 ML IVPB SCH ×4 (05:16→22:55)
[2019-12-29] MEDS: Ketorolac Tromethamine 30 MG/ML VIAL IVP SCH ×4 (05:17→22:56)
[2019-12-29] MEDS: Acetaminophen 500 MG TAB PO PRN ×3 (08:14→22:56)
[2019-12-29] MEDS: Loratadine 10 MG TAB PO SCH (08:14)
--- NOTE | 2019-12-29 10:12 | PRG ---
DATE OF SERVICE: 12/29/2019 SUBJECTIVE: Kiran Baeza is doing well today. He feels somewhat better. He believes that advancing leg edema. He did complain of leg tightness and an ultrasound of his lower extremities obtained last night revealed negative findings for DVT. He is on subcu Lovenox prophylaxis. He is without nausea, vomiting, or abdominal distention. Colostomy is healthy with a slight amount of flatus in the bag, but no stool. OBJECTIVE: VITAL SIGNS: 98.8 degrees, 100, 132/65. HEAD, EARS, EYES, NOSE, AND THROAT: Unremarkable. LUNGS: Clear to auscultation. No wheezing. CARDIAC: Regular rate and rhythm without murmur or gallop. ABDOMEN: Soft. Occasional bowel sounds. Colostomy healthy. Wound VAC removed. His wound looks very healthy. Wound VAC was replaced. I expect he would be able to possibly close the wound at the bedside next week. I would continue the wound VAC as an outpatient. Job ID: [id number]
[2019-12-29] MEDS: Enoxaparin Sodium 40 MG/0.4 ML SYRINGE SC SCH (20:49)
[2019-12-30] MEDS: Ketorolac Tromethamine 30 MG/ML VIAL IVP SCH ×3 (05:08→18:18)
[2019-12-30] MEDS: Piperacillin/Tazobactam 4.5 GM in Sodium Chloride 0.9% 100 ML IVPB SCH ×3 (05:09→18:18)
[2019-12-30] MEDS: Loratadine 10 MG TAB PO SCH (08:09)
[2019-12-30] MEDS: Acetaminophen 500 MG TAB PO PRN (13:40)
[2019-12-30 15:25] LABS: Hemoglobin 9.8 g/dL (14.0-18.0); Mean Corpuscular HGB CONC 32.7 g/dL (32.0-36.0); Mean Corpuscular Hemoglobin 30.6 pg (27.0-31.0); Mean Corpuscular Volume 93.7 fL (78.0-98.0); Mean Platelet Volume 7.2 fL (7.4-10.4); Platelet Count 250 thou/uL (130-400); RBC Distribution Width 12.2 % (11.5-14.5); White Blood Cell (WBC) Count 18.5 thou/uL (4.8-10.8)
[2019-12-30 15:49] LABS: ALT (SGPT) 35 U/L (8-55); AST (SGOT) 19 U/L (5-34); Albumin 3.1 g/dL (3.5-5.0); Alkaline Phosphatase 111 U/L (40-110); Anion Gap 15 mmol/L (10-20); BUN (Urea Nitrogen) 9 mg/dL (8.9-20.6); Calc. Creatinine Clearance 147 mL/min (70-130); Calcium 8.1 mg/dL (7.8-10.44); Carbon Dioxide 23 mmol/L (22-29); Chloride 102 mmol/L (98-107); Estimated GFR-MDRD 89; Globulin 2.6 g/dL (2.4-3.5); Glucose 130 mg/dL (70-105); Potassium 3.2 mmol/L (3.5-5.1); Protein, Total 5.7 g/dL (6.0-8.3); Sodium 137 mmol/L (136-145)
[2019-12-30 15:54] LABS: Band 21 % (5-11); Lymphocytes 5 % (21-51); MDiff Complete? YES; Metamyelocyte 1 % (0-0); Monocytes 7 % (0-10); Myelocyte 1 % (0-0); Neutrophil 62 % (42-75); Platelet Morphology Comment Appears Adequate; Polychromasia SLIGHT = 2-3 cells (100X) (0-2/hpf); Promyelocytes 1 % (0-0); Reactive Lymphocytes 2 % (0-10); Toxic Granulation SLIGHT; Vacuoles SLIGHT
--- NOTE | 2019-12-30 17:26 | PRG ---
DATE OF SERVICE: 12/30/2019 SUBJECTIVE: Kiran Baeza is doing well today. He did have a fever to 100 degrees, although the nurse called me and reported 101, although it is not recorded. The patient states he feels much better by the time I am seeing him this afternoon. I did order stat labs, and his white count is 18 and hemoglobin 9.8. Sodium 137, potassium 3.2. GFR 89. glucose 160. Alkaline phosphatase is 111, albumin 3.1. Bilirubin has fallen from 3 on admission to 1.2 on the 2nd and 1 today. He reports some upper abdominal discomfort. He has not had any biliary type symptoms in the past. PHYSICAL EXAMINATION: LUNGS: Clear to auscultation. CARDIAC: Regular rate and rhythm without murmur or gallop. ABDOMEN: Soft, plus bowel sounds, healthy colostomy, stool in his bag. Wound VAC in place. ASSESSMENT AND PLAN: The patient is doing well. Plan continued intravenous antibiotics. Recheck his white count and basic metabolic panel in the morning and check a chest x-ray because he is febrile. Consider ultrasound of the gallbladder. Consider CAT scan of the abdomen and pelvis tomorrow pending clinical course and white count trend. The patient has a good activity level and is using his incentive spirometer. Job ID: [id number]
[2019-12-30] MEDS: Enoxaparin Sodium 40 MG/0.4 ML SYRINGE SC SCH (20:49)
[2019-12-31] MEDS: Piperacillin/Tazobactam 4.5 GM in Sodium Chloride 0.9% 100 ML IVPB SCH ×4 (00:28→17:39)
[2019-12-31 05:31] LABS: Band 7 % (5-11); Hemoglobin 10.4 g/dL (14.0-18.0); Hypochromia SLIGHT = 6-15 cells (100X) (0-5/hpf); Lymphocytes 7 % (21-51); MDiff Complete? YES; Mean Corpuscular HGB CONC 32.6 g/dL (32.0-36.0); Mean Corpuscular Hemoglobin 30.4 pg (27.0-31.0); Mean Corpuscular Volume 93.1 fL (78.0-98.0); Mean Platelet Volume 7.1 fL (7.4-10.4); Metamyelocyte 2 % (0-0); Monocytes 4 % (0-10); Neutrophil 79 % (42-75); Platelet Count 340 thou/uL (130-400); Platelet Morphology Comment Appears Adequate; RBC Distribution Width 12.1 % (11.5-14.5); Reactive Lymphocytes 1 % (0-10); Red Blood Cell (RBC) Count 3.44 mill/uL (4.70-6.10); White Blood Cell (WBC) Count 17.4 thou/uL (4.8-10.8)
[2019-12-31 05:36] LABS: ALT (SGPT) 30 U/L (8-55); AST (SGOT) 18 U/L (5-34); Albumin 3.2 g/dL (3.5-5.0); Alkaline Phosphatase 117 U/L (40-110); Anion Gap 14 mmol/L (10-20); BUN (Urea Nitrogen) 9 mg/dL (8.9-20.6); Bilirubin, Total 0.7 mg/dL (0.2-1.2); Calc. Creatinine Clearance 160 mL/min (70-130); Calcium 8.5 mg/dL (7.8-10.44); Carbon Dioxide 25 mmol/L (22-29); Chloride 102 mmol/L (98-107); Estimated GFR-MDRD Greater than 90; Globulin 2.9 g/dL (2.4-3.5); Glucose 110 mg/dL (70-105); Potassium 3.2 mmol/L (3.5-5.1); Protein, Total 6.1 g/dL (6.0-8.3); Sodium 138 mmol/L (136-145)
[2019-12-31] MEDS: Loratadine 10 MG TAB PO SCH (08:26)
--- NOTE | 2019-12-31 08:42 | ULT ---
GALLBLADDER ULTRASOUND: INDICATION: Right upper quadrant pain. FINDINGS: Images of the gallbladder show echogenic sludge. No definite gallstones. Gallbladder wall thickness is normal. The common duct is normal caliber. The pancreas is obscured. The visualized liver appears unremarkable. The right kidney is unremarkable as visualized. The tech nologist describes a negative Velasco's sign. IMPRESSION: There is echogenic sludge seen within the gallbladder. No definite gallstones. POS: AGW
[2019-12-31] MEDS ORDERED: Potassium Chloride 20 MEQ TAB PO SCH ×2 (09:00→17:00)
[2019-12-31] MEDS ORDERED: Iopamidol-370 76% 500 ML 1 ML ONE (09:05)
[2019-12-31] MEDS ORDERED: Iopamidol 370 76% 50 ML VIAL FS ONE (09:05)
--- NOTE | 2019-12-31 09:25 | EKG ---
Test Reason : STAT TACHY Blood Pressure : / mmHG Vent. Rate : 134 BPM Atrial Rate : 134 BPM P-R Int : 168 ms QRS Dur : 078 ms QT Int : 296 ms P-R-T Axes : 055 025 119 degrees QTc Int : 442 ms Sinus tachycardia Cannot rule out Inferior infarct , age undetermined Probable LVH with repolarization changes Abnormal ECG No previous ECGs available Confirmed by DR. Rosy WREN ([id number]) on 12/31/2019 9:25:16 AM Referred By: DAVID KELLY Confirmed By:DR. Rosy WREN
--- NOTE | 2019-12-31 09:45 | RAD ---
EXAM: Chest PA and lateral: HISTORY: Postoperative fever. COMPARISON: None FINDINGS: Heart: Normal cardiac silhouette Aorta: Atherosclerosis of the aorta Pulmonary vessels: Normal Costophrenic angles: Small left-sided pleural effusion. Lungs: Bibasilar interstitial opacities, left greater than right. Focal consolidation with air bronch ograms in the left lower lobe. Pneumothorax: No pneumothorax Osseous structures: No osseous abnormalities IMPRESSION: 1. Small left-sided pleural effusion. Consolidation in the left lower lobe with air bronchograms may represent atelectasis, pneumonia or aspiration. 2. Nonspecific subtle interstitial opacities in the right lung base may represent atelectasis.
--- NOTE | 2019-12-31 17:20 | CT ---
CT ABDOMEN AND PELVIS WITH CONTRAST: 12/31/19 INDICATIONS: Postop fever after sigmoid resection and colostomy. COMPARISON: 12/25/19 CT abdomen and pelvis. FINDINGS: Images through the lung bases small bilateral effusions. There is dense consolidation and atelectasis in the left lung base. Mild atelectasis in the right lung base. Liver, spleen, pancreas unremarkable . Kidneys unremarkable. Small bowel loops normal caliber. There is fluid in the left abdomen which is not loculated and appea rs to represent free fluid along the left colon and colonic gutter. This may represent postoperative change. Ostomy is noted on the left. There is a tiny pocket of free air seen anteriorly in the right upper quadrant. Otherwise no signific ant free air. IMPRESSION: 1. Small bilateral effusions. Dense consolidation and atelectasis in the left lung base with mil d atelectasis/infiltrate in the right lung base. 2. Free fluid in the left abdomen along the colonic gutter and left colon into the left pelvis. No loculated abscess collection identified. POS: AGW
[2019-12-31] MEDS: Acetaminophen 500 MG TAB PO PRN (20:31)
--- NOTE | 2019-12-31 20:31 | HP ---
HISTORY OF PRESENT ILLNESS: Kiran Baeza is feeling a lot better today. He reports having subjective fever and chills early this morning while his temperature was actually only 99 degrees. Yesterday at 11:42 a.m., he had a temperature of 100 degrees and at 7 this morning, 99.7 degrees. He is feeling somewhat better today. The right upper quadrant pain has resolved. His heart rate is 96 to 105. He is passing stool and flatus from his colostomy. Pathology reveals diverticulitis changes. No malignancy. Laboratories this morning revealed his white count is 17, postoperatively had dropped to 11.4, but now it is 17,000 with an unremarkable differential. He had 21% bands yesterday, 7% today, normalized. His potassium is still low at 3.2. Basic met otherwise unremarkable. His alkaline phosphatase is slightly elevated, but his transaminases are normal. On presentation, his bilirubin was 3, which was probably due to his peritonitis from his perforated diverticulitis and has normalized. Because of his right upper quadrant pain and temporary initial elevations in his bilirubin, ultrasound of the gallbladder was obtained revealing some sludge, otherwise unremarkable findings. The sludge was probably postoperative fasting and no treatment is necessary because he did not have any prior symptoms of biliary disease. The patient had a chest x-ray this morning, reveals changes consistent with his peritonitis and perforation with a small left-sided effusion and some left lower lobe consolidation consistent with atelectasis, pneumonia, and aspiration. These are probably postoperative changes. The patient overall feels better. PHYSICAL EXAMINATION: LUNGS: Clear to auscultation. No wheezing. CARDIAC: Regular rate and rhythm without murmur or gallop. ABDOMEN: Soft. Bowel sounds present. Colostomy healthy. Wound VAC was changed this morning, I was not called. EXTREMITIES: Unremarkable. Of note, his previous ultrasound of lower extremities negative for DVT. ASSESSMENT AND PLAN: Postoperative fever from diverticulitis. We will obtain CAT scan of the abdomen and pelvis p.o. and IV contrast today. We will continue intravenous antibiotics. Continue regular diet and saline lock. We will check CBC and basic metabolic in the morning. If he continues doing well, possibly can be discharged home in the next day or two pending his fever and temperature and CAT scan results. He does have a followup visit in my office next week for possible wound closure anticipating he will go home in the next day or two. Job ID: [id number]
[2019-12-31] MEDS: Enoxaparin Sodium 40 MG/0.4 ML SYRINGE SC SCH (20:34)
[2020-01-01] MEDS: Piperacillin/Tazobactam 4.5 GM in Sodium Chloride 0.9% 100 ML IVPB SCH ×3 (00:24→11:52)
[2020-01-01 05:18] LABS: #Basophils 0.1 thou/uL (0.0-0.2); #Eosinphils 0.3 thou/uL (0.0-0.7); #Lymphocytes 1.8 thou/uL (1.20-3.40); #Monocytes 0.9 thou/uL (0.11-0.59); #Neutrophils 10.2 thou/uL (1.40-6.50); %Basophils 0.5 % (0.0-1.0); %Eosinophils 2.3 % (0.0-10.0); %Lymphocytes 13.7 % (21.0-51.0); %Neutrophils 76.5 % (42.0-75.0); Hemoglobin 9.1 g/dL (14.0-18.0); Mean Corpuscular HGB CONC 32.4 g/dL (32.0-36.0); Mean Corpuscular Hemoglobin 30.4 pg (27.0-31.0); Mean Corpuscular Volume 93.8 fL (78.0-98.0); Mean Platelet Volume 6.7 fL (7.4-10.4); Platelet Count 319 thou/uL (130-400); RBC Distribution Width 12.2 % (11.5-14.5); White Blood Cell (WBC) Count 13.3 thou/uL (4.8-10.8)
[2020-01-01 05:42] LABS: ALT (SGPT) 25 U/L (8-55); AST (SGOT) 16 U/L (5-34); Alkaline Phosphatase 95 U/L (40-110); Anion Gap 13 mmol/L (10-20); BUN (Urea Nitrogen) 8 mg/dL (8.9-20.6); Bilirubin, Total 0.6 mg/dL (0.2-1.2); Calc. Creatinine Clearance 166 mL/min (70-130); Calcium 8.1 mg/dL (7.8-10.44); Carbon Dioxide 25 mmol/L (22-29); Chloride 104 mmol/L (98-107); Estimated GFR-MDRD Greater than 90; Globulin 2.5 g/dL (2.4-3.5); Glucose 102 mg/dL (70-105); Potassium 3.8 mmol/L (3.5-5.1); Protein, Total 5.5 g/dL (6.0-8.3); Sodium 138 mmol/L (136-145)
[2020-01-01] MEDS: Loratadine 10 MG TAB PO SCH (08:24)
[2020-01-01] MEDS ORDERED: Ibuprofen 600 MG TAB PO PRN (13:13)
[2020-01-01 13:20] VITALS: BP 138/87; TEMP 99.2
[2020-01-01] MEDS ORDERED: Amoxicillin/Potassium Clav 875 MG TAB PO SCH (21:00)
--- NOTE | 2020-01-02 04:45 | DIS ---
DATE OF ADMISSION: 12/25/2019 DATE OF DISCHARGE: 01/01/2020 DISCHARGE DIAGNOSES: Ruptured appendicitis with peritonitis from diverticular abscess. PROCEDURES: CAT scan of abdomen and pelvis, exploratory laparotomy, left colon resection, splenic flexure mobilization, and colostomy. CAT scan 12/31/2019 postoperatively, noting postoperative changes. Follow up with Dr. Dodson next week for evaluation of wound for secondary closure at bedside in the office. I will arrange for outpatient wound VAC care and outpatient wound care [facility]. HISTORY: A 39-year-old male with multiple admissions and episodes of diverticulitis treated nonsurgically, admitted at this occasion with repeat diverticulitis, severe pain, and fever. He initially was treated conservatively, nonoperatively. By the next morning, he decompensated and worsened and required the above-mentioned operation. Postoperatively, he did well, convalesced, and tolerated his diet. He was instructed on colostomy care. He was sent home with pain regimen of Tylenol and Motrin [id number] and Ultram p.r.n. pain. He is on Augmentin 875 p.o. b.i.d. for 7 days. No lifting over 25 pounds. Outpatient wound care appointment for wound VAC care. Appointment in my office next week for inspection of wound, consideration of delayed closure at bedside. Job ID: [id number]
--- NOTE | 2020-01-02 08:23 | PQF ---
RENUKA ERIC RICHARD D MD [id number] SURG [id number] CLINICAL DOCUMENTATION CLARIFICATION FORM: POST DISCHARGE Addendum to original discharge summary date: ____ Late entry note date: __ DATE: 01/02/2020 ATTN:Sea Osorio Please exercise your independent, professional judgment in responding to the clarification form. Clinical indicators are provided on the bottom of this form for your review Sepsis [ ] Ruled in diagnosis [ ] Continue to treat [ ] Resolved [ ] Ruled out diagnosis [ ] Cannot rule out diagnosis [ ] Other diagnosis [ ] Unable to determine In addition, please specify: Present on Admission (POA): [ ] Yes [ ] No [ ] Unable to determine CLINICAL INDICATORS - SIGNS / SYMPTOMS / LABS Vital signs 12/24 BP 110/89, Pulse 102, Resp 29, Temp 99.0 Laboratory 12/24 WBC 19.3, Neutrophils 85.1, Plt count 207, Lactic Acid 2.1 ED notes p2 12/24 SIRS scoring: Yes pt did meet the criteria H&P p1 12/24 Dr Dodson presented to ER and CAT scan reveals scant amount of pneumoperitoneum and an abscess and left pericolic gutter H&P p1 12/24 Dr Dodson Postoperative fever from diverticulitis Operative report p1 12/25 Dr Dodson Perforated diverticulitis, sigmoid peritonitis and sepsis Collected 12/24 Blood culture:No growth in 5 days [employer]IS[employer] Operative report p1 12/25 Perforated Diverticulitis Operative report p1 12/25 Sigmoid peritonitis Operative report p1 12/25 Redundant Fatty omentum TREATMENT: Operative report p1 12/25 Dr Chaudhary's procedure with Colostomy OCT 28 IV Morphine 2mg OCT 28 IV Zosyn 3.375 OCT 28 IVF NS 1L Collected 12/24 Blood culture (This form is maintained as a part of the permanent medical record) 2014 [employer]. All Rights Reserved [email or web address]
--- NOTE | 2020-01-02 08:24 | PQF ---
RENUKA ERIC RICHARD D MD [id number] SURG A- [id number] CLINICAL DOCUMENTATION CLARIFICATION FORM: POST DISCHARGE Addendum to original discharge summary date: ____ Late entry note date: __ DATE: 01/02/2020 ATTN:Sea Osorio Please exercise your independent, professional judgment in responding to the clarification form. Clinical indicators are provided on the bottom of this form for your review Please check appropriate box(s): In the description of the operative procedure a seromuscular tear was noted by the surgeon. If possible would you please further clarify if this was: [ ] Incidental occurrence inherent in the surgical procedure [ ] Complication of the procedure [ ] Other [ ] Unable to determine For continuity of documentation, please document condition throughout progress notes and discharge summary. Thank You. CLINICAL INDICATORS - SIGNS / SYMPTOMS / LABS Vital signs 12/24 BP 110/89, Pulse 102, Resp 29, Temp 99.0 H&P p1 12/24 Dr Dodson presented to ER and CAT scan reveals scant amount of pneumoperitoneum and an abscess and left pericolic gutter Operative report p1 12/25 Dr Dodson There was one seromuscular tear of the left colon, closed with interrupted Lembert suture RISK FACTORS Operative report p1 12/25 Sepsis Operative report p1 12/25 Perforated Diverticulitis Operative report p1 12/25 Sigmoid peritonitis Operative report p1 12/25 Redundant Fatty omentum TREATMENTS: Operative report 12/25 Dr Chaudhary's procedure Operative report 12/25 Dr DodsonColostomy Operative report 12/25 Dr Dodson Seromuscular tear repair OCT 28 IV Morphine 2mg OCT 28 IV Zosyn 3.375 OCT 28 IVF NS 1L (This form is maintained as a part of the permanent medical record) 2014 [employer]. All Rights Reserved [email or web address] [email or web address]
== END 2020-01-01 16:00 | disposition home or self-care (01) | DRG 329 ==
LOC: ERS 09:16 → SURG A 13:53
PROVIDERS: ADMIT Specialist; ATTEND Specialist
PROC: 0DBN0ZZ Excision of Sigmoid Colon, Open Approach (ICD-10-PCS; principal; 2019-12-26)
PROC: 0D1N0Z4 Bypass Sigmoid Colon to Cutaneous, Open Approach (ICD-10-PCS; 2019-12-26)
PROC: 0DBU0ZZ Excision of Omentum, Open Approach (ICD-10-PCS; 2019-12-26)
PROC: 3E0M05Z Introduction of Adhesion Barrier into Peritoneal Cavity, Open Approach (ICD-10-PCS; 2019-12-26)
DX: K57.20 Diverticulitis of large intestine with perforation and abscess without bleeding (principal); K65.8 Other peritonitis; Q45.8 Other specified congenital malformations of digestive system; Z79.899 Other long term (current) drug therapy
CPT/HCPCS: 36415; 36416; 71046; 74177; 76705; 80053; 81003; 81015; 83605; 83690; 85025; 87040; 87086; 88307; 93005; 93010; 93970; 96361; 96365; 96375; C9113; J0670; J1100; J1650; J1885; J2001; J2250; J2270; J2405; J2543; J2704; J3010; J3480; J3490; J7120; P9045; Q9967

== ENCOUNTER 2020-03-25 06:27 | Outpatient (CLI) | payer BC, OTHER ==
[2020-03-25 14:09] LABS: #Basophils 0.1 thou/uL (0.0-0.2); #Eosinphils 0.2 thou/uL (0.0-0.7); #Lymphocytes 1.5 thou/uL (1.20-3.40); #Monocytes 0.6 thou/uL (0.11-0.59); #Neutrophils 4.9 thou/uL (1.40-6.50); %Basophils 0.9 % (0.0-1.0); %Eosinophils 3.1 % (0.0-10.0); %Lymphocytes 20.8 % (21.0-51.0); %Monocytes 7.8 % (0.0-10.0); %Neutrophils 67.4 % (42.0-75.0); Hemoglobin 15.8 g/dL (14.0-18.0); Mean Corpuscular Volume 87.6 fL (78.0-98.0); Mean Platelet Volume 8.7 fL (7.4-10.4); Platelet Count 199 thou/uL (130-400); RBC Distribution Width 13.4 % (11.5-14.5); Red Blood Cell (RBC) Count 5.64 mill/uL (4.70-6.10); White Blood Cell (WBC) Count 7.2 thou/uL (4.8-10.8)
[2020-03-25 14:11] LABS: Hemoglobin A1c 5.4 % (4.0-6.0)
[2020-03-25 14:17] LABS: Anion Gap 12 mmol/L (10-20); BUN (Urea Nitrogen) 14 mg/dL (8.9-20.6); Calc. Creatinine Clearance 0 mL/min (70-130); Calcium 10.2 mg/dL (7.8-10.44); Carbon Dioxide 30 mmol/L (22-29); Chloride 103 mmol/L (98-107); Estimated GFR-MDRD 69; Glucose 93 mg/dL (70-105); Potassium 4.4 mmol/L (3.5-5.1); Sodium 141 mmol/L (136-145)
[2020-03-26 12:08] LABS: SARS-CoV-2 MS2 Positive; SARS-CoV-2 N Gene Negative; SARS-CoV-2 S Gene Negative; SARS-CoV-2 by NAA Not Detected (NotDetected); SARS-CoV-2 orf1ab Negative
== END 2020-03-25 06:28 | disposition home or self-care (01) ==
LOC: LABBT 06:27
PROVIDERS: ATTEND Specialist
DX: Z01.812 Encounter for preprocedural laboratory examination (principal); Z11.59 Encounter for screening for other viral diseases; K57.90 Diverticulosis of intestine, part unspecified, without perforation or abscess without bleeding; Z93.3 Colostomy status
CPT/HCPCS: 80048; 83036; 85025; 87635; U0003

== ENCOUNTER 2020-03-25 10:30 | Inpatient (IN) | payer BC ==
--- NOTE | 2020-03-29 05:49 | HP ---
HISTORY OF PRESENT ILLNESS: Kiran Baeza is a 39-year-old male patient who presented with perforated diverticulitis, requiring laparotomy, sigmoid colon resection, splenic flexure mobilization, Kayla's pouch on 12/26/2019. The patient has had a colonoscopy in the past, has not had one repeated. Plan is for a bowel prep the day before and plan laparoscopic colostomy reversal. He understands risks and benefits, consents. He will be admitted postoperatively. General anesthesia with TAP block planned. MEDICATIONS: None routinely. PAST MEDICAL HISTORY: Not significant. PAST SURGICAL HISTORY: As above, otherwise noncontributory. FAMILY HISTORY: Hypertension and diabetes. His grandfather of cancer. Grandmother of mental illness. SOCIAL HISTORY: Tobacco, none. Alcohol, none. REVIEW OF SYSTEMS: Noncontributory. PHYSICAL EXAMINATION: VITAL SIGNS: Blood pressure 122/69, heart rate 65, and temperature 98.2 degrees. HEAD, EARS, EYES, NOSE, AND THROAT: Unremarkable. LUNGS: Clear to auscultation. CARDIAC: Regular rate and rhythm without murmur or gallop. ABDOMEN: Soft and nontender. Midline wound well healed without hernia. Colostomy healthy. EXTREMITIES: Unremarkable. No ankle edema. ASSESSMENT AND PLAN: Undesired colostomy. PLAN: Colostomy reversal after bowel prep, general anesthesia and TAP block. He understands risks and benefits, consents laparoscopic versus open colostomy reversal. Job ID: [id number]
[2020-03-29] MEDS ORDERED: Lidocaine 1% w/Epinephrine 1:100K 20 ML VIAL ONE (06:54)
[2020-03-29] MEDS ORDERED: Bupivacaine PF 0.5% 30 ML VIAL ONE (06:54)
[2020-03-29] MEDS ORDERED: Midazolam HCl 2 mg/2 ml Vial ONE (07:02)
[2020-03-29] MEDS ORDERED: Lidocaine 1% (PF) 30 ML VIAL ONE (07:02)
[2020-03-29] MEDS ORDERED: Fentanyl 100 MCG/2 ML VIAL ONE ×3 (07:02→11:54)
[2020-03-29] MEDS ORDERED: Scopolamine 1.5 mg/72 hour Patch ONE (07:04)
[2020-03-29] MEDS ORDERED: Ketorolac Tromethamine 30 MG/ML VIAL ONE (07:04)
[2020-03-29] MEDS ORDERED: Acetaminophen 500 MG TAB ONE (07:04)
[2020-03-29] MEDS ORDERED: Dexamethasone 4 mg/ml Vial ONE (07:08)
[2020-03-29] MEDS ORDERED: Meropenem 2 GM in Sodium Chloride 0.9% 100 ML IVPB SCH (07:15)
[2020-03-29] MEDS ORDERED: HYDROmorphone 0.5 MG/0.5 ML SYRINGE ONE (07:29)
[2020-03-29] MEDS ORDERED: Albumin 5% 500 ML ONE (07:29)
[2020-03-29] MEDS ORDERED: Ondansetron HCl/PF 4 MG/2 ML Vial IVP PRN (09:12)
[2020-03-29] MEDS ORDERED: Promethazine HCl 25 MG/ML VIAL IM PRN (09:12)
[2020-03-29] MEDS ORDERED: Promethazine HCl 25 MG/ML VIAL SLOW IVP PRN (09:12)
[2020-03-29] MEDS ORDERED: HYDROmorphone 2 MG/ML VIAL SLOW IVP PRN (09:12)
[2020-03-29] MEDS ORDERED: PACU-Morphine 4MG/ML VIAL SLOW IVP PRN (09:12)
[2020-03-29] MEDS ORDERED: Bupivacaine HCl 0.5%/Epinephrine 1:200,000/PF 30 ml Vial ONE (09:57)
[2020-03-29] MEDS ORDERED: PROPOFOL 200 MG/20 ML VIAL ONE (09:57)
[2020-03-29] MEDS ORDERED: Lidocaine 1% PF 5 ML VIAL ONE (09:57)
[2020-03-29] MEDS ORDERED: Ondansetron PF 4 MG/2 ML Vial ONE (09:57)
[2020-03-29] MEDS ORDERED: Dexamethasone 20 MG/5 ML VIAL ONE ×2 (09:57)
[2020-03-29] MEDS ORDERED: Rocuronium Bromide 10 MG/ML (10ML VIAL) ONE (09:57)
[2020-03-29] MEDS ORDERED: PHENYLEPHRINE-NS 100 MCG/ML 10 ML SYRINGE ONE (09:57)
[2020-03-29] MEDS ORDERED: Morphine 10 MG/ML VIAL SLOW IVP PRN (11:12)
[2020-03-29] MEDS ORDERED: Ondansetron PF 4 MG/2 ML Vial IVP PRN (11:12)
[2020-03-29] MEDS ORDERED: Morphine 4 MG/ML VIAL SLOW IVP PRN (11:12)
[2020-03-29] MEDS ORDERED: Morphine 2 MG/ML VIAL SLOW IVP PRN (11:12)
[2020-03-29] MEDS ORDERED: hydrALAZINE 20 MG/ML VIAL SLOW IVP PRN (11:12)
[2020-03-29] MEDS ORDERED: Ondansetron ODT 8 MG TAB SL PRN (11:15)
[2020-03-29] MEDS ORDERED: Ondansetron ODT 8 MG TAB PO PRN (11:15)
[2020-03-29] MEDS ORDERED: Ondansetron ODT 4 MG TAB PO PRN (11:15)
[2020-03-29] MEDS ORDERED: Ondansetron ORAL SOLN. 4 MG/5 ML UDCUP PO PRN ×2 (11:15)
[2020-03-29] MEDS ORDERED: traMADol HCl 50 MG TAB PO PRN ×2 (11:17)
[2020-03-29] MEDS: Ketorolac Tromethamine 30 MG/ML VIAL IVP SCH ×3 (12:00→23:25)
[2020-03-29] MEDS ORDERED: Acetaminophen 500 MG TAB PO PRN (12:00)
[2020-03-29] MEDS ORDERED: Labetalol HCl 100 MG/20 ML VIAL ONE (12:13)
[2020-03-29] MEDS ORDERED: Morphine 4 MG/ML VIAL ONE (12:21)
[2020-03-29] MEDS ORDERED: hydrALAZINE 20 MG/ML VIAL ONE (12:55)
[2020-03-29 14:15] VITALS: BMI 32.6
--- NOTE | 2020-03-29 18:26 | OP ---
DATE OF PROCEDURE: 03/29/2020 PREOPERATIVE DIAGNOSES: Undesired colostomy, history of diverticulitis, and sigmoid colon resection for perforation. PROCEDURES PERFORMED: Laparoscopic adhesiolysis, laparoscopic colostomy reversal, 33-mm EEA stapler checked under water without leak. SPECIMENS: Short-segment rectosigmoid. ANESTHESIA: General, TAP block. ESTIMATED BLOOD LOSS: Less than 100. DESCRIPTION OF PROCEDURE: The patient was taken to the operating room where under general anesthesia in the dorsal lithotomy position, abdomen was clipped of hair. Abdomen was prepared with ChloraPrep. Buttocks, perineum, and genitals prepared with Betadine and draped in the routine fashion. Right lateral subcostal incision made and pneumoperitoneum to 15 mmHg was obtained with a Veress needle, replaced with a 5 port, video laparoscope inserted. Right mid lateral abdominal incision made and a 5 port placed. Right lower quadrant lateral incision made and a 12 port placed. Adhesiolysis taken down with hot scissors and cold scissors and LigaSure. There were small bowel adhesions taken down from the abdominal wall, omentum, left colon and colostomy site area. Once these were all freed, pelvic adhesions from the pelvis freed to allow all viscera to be swept cephalad. Adhesiolysis carried out freeing the previously mobilized splenic flexure and left colon, freeing them of adhesions up towards the ligament of Treitz and up in the left upper quadrant, thin filmy adhesions. Mobilizing this, adhesiolysis was then performed around the colostomy site freeing the colon from the colostomy site edges. At this point, attention was then turned to the pelvis. The rectal stump was identified. Prolene suture identified. It was dissected free down to the pelvis. Rectosigmoid was skeletonized using the LigaSure staying close to the colon. Once this was completed, rectal dilators and sizers placed placing the sizers up to a 33-mm sizer noting it to pass easily. Laparoscopic Endo-MYNOR blue load stapler was then inserted freeing the rectum, transecting it under laparoscopic visualization, and specimen was placed in the left abdomen. Incision was made around the old colostomy site, which prior to the procedure being closed with continuous suture of 2-0 Prolene. This was mobilized margin of skin down to the colon edges, freeing the colon, dropping it and bringing into the wound using a wound protector. The colon was re-excised using the cautery, opened, and a 33-mm anvil placed, lubricated into the colon, and a pursestring suture of 2-0 Prolene placed securing it against the anvil. It was then dropped back in the abdominal cavity and pneumoperitoneum reinstated. The operating cruise gloves and gowns were changed. I then turned my attention to the pelvis. The colon was brought down to the pelvis and the anvil mated to the rectal spike as the stapler had been introduced and directed to the staple line, advanced to the staple line and properly positioned and approximated within the proximal anvil to the proximal colon and it was approximated approximated and fired and loosened and removed noting 2 intact donuts. It was then checked under water without leak. Good hemostasis was noted. Irrigant and pneumoperitoneum evacuated. All instruments removed and the specimen resected had fallen off the grasper and we had to reinstate pneumoperitoneum, placed another 5 port through the old port site and identified this and removed it and then the old colostomy site closed by approximating the posterior fascia with continuous suture of #1 PDS and anterior fascia with interrupted [id number] sutures of #1 PDS. Skin and subcutaneous tissues were irrigated. Subcutaneous tissue was approximated with 3-0 Monocryl, skin with 4-0 Monocryl and 3-0 Monocryl circumferential pursestring type of approximation. This had been thoroughly irrigated prior to closure. Laparoscopic port sites approximated with subdermal 4-0 Monocryl and [place] glue and sterile dressings applied. The patient tolerated the procedure well. Job ID: [id number]
[2020-03-29] MEDS: Potassium Chloride 20 MEQ in Lactated Ringer's 1,000 ML IV SCH ×2 (18:31→20:04)
[2020-03-29] MEDS: Famotidine/PF 20 mg/2ml Vial SLOW IVP SCH (20:00)
[2020-03-29] MEDS ORDERED: Enoxaparin Sodium 40 MG/0.4 ML SYRINGE SC SCH (21:00)
[2020-03-30] MEDS: Potassium Chloride 20 MEQ in Lactated Ringer's 1,000 ML IV SCH ×2 (03:37→09:42)
[2020-03-30 05:27] LABS: #Basophils 0.1 thou/uL (0.0-0.2); #Lymphocytes 0.9 thou/uL (1.20-3.40); #Neutrophils 11.1 thou/uL (1.40-6.50); %Basophils 0.9 % (0.0-1.0); %Eosinophils 0.3 % (0.0-10.0); %Monocytes 7.2 % (0.0-10.0); %Neutrophils 84.6 % (42.0-75.0); Hemoglobin 13.9 g/dL (14.0-18.0); Mean Corpuscular Hemoglobin 28.9 pg (27.0-31.0); Mean Corpuscular Volume 87.9 fL (78.0-98.0); Mean Platelet Volume 8.3 fL (7.4-10.4); Platelet Count 194 thou/uL (130-400); RBC Distribution Width 13.4 % (11.5-14.5); White Blood Cell (WBC) Count 13.1 thou/uL (4.8-10.8)
[2020-03-30 05:48] LABS: Anion Gap 13 mmol/L (10-20); BUN (Urea Nitrogen) 11 mg/dL (8.9-20.6); Calc. Creatinine Clearance 126 mL/min (70-130); Calcium 9.6 mg/dL (7.8-10.44); Carbon Dioxide 25 mmol/L (22-29); Chloride 106 mmol/L (98-107); Estimated GFR-MDRD 75; Glucose 121 mg/dL (70-105); Potassium 4.2 mmol/L (3.5-5.1); Sodium 140 mmol/L (136-145)
[2020-03-30] MEDS: Ketorolac Tromethamine 30 MG/ML VIAL IVP SCH ×2 (05:48→11:44)
--- NOTE | 2020-03-30 07:18 | PDOC.GSPN ---
Surgery Progress Note: Subj - Subjective Patient reports: pain well controlled, tolerating liquids well, no bowel movement, no flatus Narrative: Mr. Baeza is a 39 y/o M who 1 day s/p colostomy reversal. Patient reports feeling well and is tolerating a clear liquid diet well. Surgery Progress Note: Obj - Vital signs Vital signs: Vital Signs - Most Recent Temp Pulse Resp BP Pulse Ox 97.8 F 74 18 114/75 96 03/30/20 03:34 03/30/20 03:34 03/30/20 03:34 03/30/20 03:34 03/30/20 03:34 - Physical Exam General: no distress, well developed, well nourished Cardiovascular: regular rate and rhythm Respiratory: clear to auscultation, normal expansion, normal respiratory effort , breath sounds present Abdomen: decreased bowel sounds (some heard in mid abodomen around the umbilicus ), appropriately tender Psychiatric: memory intact, oriented to person, speech is normal Wound: dressing clean,dry,intact, healing well Surgery Progress Note: Results - Labs Result Diagrams: 03/30/20 05:01 03/30/20 05:01 Lab results: Laboratory Results - last 24 hr 03/30/20 03/30/20 05:01 05:01 WBC 13.1 H RBC 4.80 Hgb 13.9 L Hct 42.2 MCV 87.9 MCH 28.9 MCHC 33.0 RDW 13.4 Plt Count 194 MPV 8.3 Neutrophils % 84.6 H Lymphocytes % 7.0 L Monocytes % 7.2 Eosinophils % 0.3 Basophils % 0.9 Neutrophils # 11.1 H Lymphocytes # 0.9 L Monocytes # 1.0 H Eosinophils # 0.0 Basophils # 0.1 Sodium 140 Potassium 4.2 Chloride 106 Carbon Dioxide 25 Anion Gap 13 BUN 11 Creatinine 1.11 Estimated GFR (MDRD) 75 Glucose 121 H Calcium 9.6 Surgery Progress Note: A/P - Problem (1) S/P colostomy takedown Current Visit: Yes Code(s): Z98.890 - OTHER SPECIFIED POSTPROCEDURAL STATES Status: Acute - Plan Plan: Patient should continue walking program. Patient can continue on to a full liquid diet. Continue DVT prophylaxis.
--- NOTE | 2020-03-30 10:07 | PRG ---
DATE OF SERVICE: 03/30/2020 SUBJECTIVE: Mr. Baeza is doing well today. He is tolerating his full liquids. He has not had any nausea or vomiting. His pain is minimal. He had a TAP block and general anesthesia. Overall, he reports his soreness. There is no nausea or vomiting. Vital signs are stable. He is afebrile. His hemoglobin is stable. OBJECTIVE: LUNGS: Clear to auscultation. CARDIAC: Regular rate and rhythm. No murmur or gallop. ABDOMEN: Good bowel sounds. Soft, nontender. Surgical wounds look good. ASSESSMENT AND PLAN: Doing well. We will advance diet as tolerated slowly to a soft diet or regular diet over the next few days. May take Tylenol, Motrin and ibuprofen for pain. It is likely he will be discharged home later today. Nurse will call me when he is ready. Job ID: [id number]
[2020-03-30] MEDS: Famotidine/PF 20 mg/2ml Vial SLOW IVP SCH (11:44)
[2020-03-30 12:11] VITALS: BP 122/80; TEMP 98.9
--- NOTE | 2020-03-30 16:15 | DIS ---
DATE OF ADMISSION: 03/29/2020 DATE OF DISCHARGE: 03/30/2020 DISCHARGE DIAGNOSIS: Undesired colostomy secondary to diverticulitis 3 months ago. PROCEDURES: Laparoscopic colostomy reversal. Followup in 1 to 2 weeks. HISTORY: A 39-year-old male with perforated diverticulitis, requiring sigmoid colon resection, colostomy, now presents for colostomy reversal after a bowel prep yesterday. The patient underwent the procedure. Postop, he did well and has been discharged home with Tylenol, Advil for pain, Ultram as needed which he has at home. No lifting over 25 pounds for 4 weeks. Follow up in my office in 2 to 3 weeks. Job ID: [id number]
[2020-04-01] MEDS ORDERED: Ibuprofen 600 MG TAB PO PRN (09:20)
== END 2020-03-30 16:21 | disposition home or self-care (01) | DRG 331 ==
LOC: SURG A 03-29 05:54 → SJJU 03-29 14:04
PROVIDERS: ADMIT Specialist; ATTEND Specialist
PROC: 0DBN4ZZ Excision of Sigmoid Colon, Percutaneous Endoscopic Approach (ICD-10-PCS; principal; 2020-03-29)
DX: Z43.3 Encounter for attention to colostomy (principal)
CPT/HCPCS: 36415; 36416; 80048; 85025; 88304; J0360; J0670; J1100; J1170; J1650; J1885; J2001; J2250; J2270; J2405; J2704; J3010; P9045; S0020; S0028